=== PATIENT | female | born 1935 | race Caucasian/White ===

== ENCOUNTER → 2016-08-31 | Outpatient (CLI) | payer MEDICARE, OTHER ==
--- NOTE | 2016-09-01 00:24 | MR ---
EXAMINATION TYPE: MR lumbar spine wo con DATE OF EXAM: 08/31/2016 3:48 PM COMPARISON: 12/04/2014 HISTORY: 81-year-old female LBP radiating into left leg for several years, no trauma/surgery. TECHNIQUE: Multiplanar, multisequence images of the lumbar spine were obtained without IV contrast. FINDINGS: Vertebral body heights are preserved. Advanced hypertrophic facet arthropathy throughout with degenerative grade 1 anterolisthesis at L4-L5 . Otherwise, alignment is maintained. There is dextroconvex curvature of the lumbar spine and advanced Modic type III sclerotic endplate ch anges towards the left lateral side of concavity particularly at L3-L4. Variable moderate multilevel degenerative disc disease especially at L3-L4 and L5-S1 where there is n arrowing of disc space, disc desiccation, and diffuse disc bulging. Multiple levels of ligamentum flavum thickening is also present. There is also degenerative thinning of the interspinous ligaments with abutment of the spinous proces ses. There is a posterior annular fissure at L5-S1, unchanged. No suspicious bone marrow replacement. Conus medullaris is normal. Incidental 1.3 cm cortical cyst medial left kidney. Redemonstrated mass within the left adrenal gland measuring 3.2 cm, unchanged from 12/14/2014 suggesting a benign etiology. Otherwise, no prevertebral or paravertebral soft tissue abnormality seen. At L5-S1, minimal bulging disc without significant spinal canal or neuroforaminal stenosis. At L1-L2, mild disc bulge and mild facet degenerative change. There is minimal right-sided neuroforam inal narrowing without significant spinal canal stenosis. At L2-L3, there is diffuse disc bulge and ligamentum flavum thickening with prominent dorsal epidural fat. There is overall mild narrowing of the spinal canal and mild left neuroforaminal stenosis, not significantly changed from prior. At L3-L4, there is diffuse disc bulge and ligamentum flavum thickening as well as hypertrophic facet arthropathy. There is a prominent left intraforaminal disc protrusion, similar to prior exam and solorzano ges appear to contribute to severe left neuroforaminal stenosis, similar to prior. There is also a mo derate spinal canal stenosis and mild right neuroforaminal stenosis. At L4-L5, there is hypertrophic facet arthropathy with grade 1 anterolisthesis, diffuse disc bulging, and marked ligamentum flavum thickening. Changes result in moderate to severe spinal canal stenosis with a moderate bilateral neuroforaminal stenoses. Lateral recess stenosis is likely also present. At L5-S1, disc osteophyte complex formation with hypertrophic facet arthropathy. Changes result in mi ld left and moderate right neuroforaminal stenosis. Disc osteophyte complex may abut the exiting righ t L5 nerve root. IMPRESSION: 1. Multilevel moderate to advanced disc/endplate degenerative change. There is similar prominent scle rotic Modic type III endplate change on the left at L3-L4 along the concavity of a dextroconvex scoli osis. 2. No vertebral compression collapse. 3. Additional multilevel ligamentum flavum thickening and hypertrophic facet arthropathy with grade 1 anterolisthesis at L4-L5. 4. Changes result in similar moderate spinal canal stenosis at L3-L4 and moderate to severe spinal ca nal stenosis at L4-L5. 5. Variable neuroforaminal stenoses as outlined above severe on the left at L3-L4, moderate on both s ides at L4-L5, and moderate on the right at L5-S1. These also appear relatively similar.
== END | disposition home or self-care (01) ==
LOC: RADMRIMAIN 14:41
PROVIDERS: ATTEND Physical Medicine & Rehabilitation
DX: M48.06 Spinal stenosis, lumbar region (principal); M99.73 Connective tissue and disc stenosis of intervertebral foramina of lumbar region; M43.16 Spondylolisthesis, lumbar region; M47.816 Spondylosis without myelopathy or radiculopathy, lumbar region; M41.86 Other forms of scoliosis, lumbar region
CPT/HCPCS: 72148

== ENCOUNTER → 2016-08-31 | Outpatient (CLI) | payer MEDICARE, OTHER ==
[2016-08-31 16:21] LABS: Basophils # (A) 0.1 k/uL (0-0.2); Basophils % (A) 1 %; CH 29.1; CHCM 33.9; Eosinophils # (A) 0.1 k/uL (0-0.7); Eosinophils % (A) 1 %; HDW 2.63; HGB 14.4 gm/dL (11.4-16.0); Luc % (Auto) 1; Lymphocytes # (A) 1.2 k/uL (1.0-4.8); Lymphocytes % (A) 16 %; MCH 28.2 pg (25.0-35.0); MCHC 32.8 g/dL (31.0-37.0); Mean Platelet Volume 6.7; Monocytes # (A) 0.4 k/uL (0-1.0); Monocytes % (A) 5 %; Neutrophils # (A) 5.5 k/uL (1.3-7.7); Neutrophils % (A) 75 %; RBC 5.11 m/uL (3.80-5.40); RDW 13.2 % (11.5-15.5); WBC 7.4 k/uL (3.8-10.6); WBC (Perox) 7.44
[2016-08-31 16:45] LABS: ALT 20 U/L (9-52); AST 24 U/L (14-36); Alkaline Phosphatase 92 U/L (38-126); Anion Gap 10 mmol/L; Blood Urea Nitrogen 19 mg/dL (7-17); C Reactive Protein <5.0 mg/L (<10.0); Calcium 9.5 mg/dL (8.4-10.2); Carbon Dioxide 26 mmol/L (22-30); Chloride 106 mmol/L (98-107); Cholesterol 187 mg/dL (<200); Creatine Kinase 82 U/L (30-135); Glucose 107 mg/dL (74-99); HDL Cholesterol 63 mg/dL (40-60); Non-African American GFR(MDRD) >60 (>60 ml/min/1.73 sqM); Potassium 3.9 mmol/L (3.5-5.1); Sodium 142 mmol/L (137-145); Total Bilirubin 0.8 mg/dL (0.2-1.3); Total Protein 6.4 g/dL (6.3-8.2); Triglycerides 136 mg/dL (<150)
[2016-08-31 17:47] LABS: Erythrocyte Sedimentation Rate 8 mm/hr (0-20)
[2016-08-31 20:46] LABS: Hemoglobin A1C 5.2 % (4.2-6.1)
== END | disposition home or self-care (01) ==
LOC: LABWHC1 16:00
PROVIDERS: ATTEND Internal Medicine
DX: E78.5 Hyperlipidemia, unspecified (principal); E11.9 Type 2 diabetes mellitus without complications; I10 Essential (primary) hypertension; E03.9 Hypothyroidism, unspecified; J44.9 Chronic obstructive pulmonary disease, unspecified; E55.9 Vitamin D deficiency, unspecified; J45.909 Unspecified asthma, uncomplicated
CPT/HCPCS: 36415; 72148; 80053; 80061; 82306; 82550; 83036; 84443; 85025; 85652; 86140

== ENCOUNTER 2018-08-03 07:35 | Emergency (ER) | payer MEDICARE, OTHER ==
[2018-08-03] MEDS ORDERED: HYDROmorphone 1 MG/ML 1 ML SYRINGE IM STA (07:45)
[2018-08-03 07:47] VITALS: BP 159/74; PULSE 81; RESP 16; TEMP 97.6
--- NOTE | 2018-08-03 07:59 | ED ---
Back Pain HPI - General Stated Complaint: back pain Time Seen by Provider: 08/03/18 07:38 Source: patient, EMS, RN notes reviewed Mode of arrival: EMS Limitations: no limitations - History of Present Illness Initial Comments: This is an 83-year-old female presents emergency Department chief complaint of low back pain. Patient states that she accidentally hit her life alert this morning without knowing she states EMS arrived at her house and they were talking to her and she stated that she had low back pain which is chronic. She states they convinced her to come in because I was crying from the pain. She states it always in pain and she does see Dr. Alexandre and Dr. Garcia. Patient states she was her Elizabeth but states it didn't help so she stopped taking it. This pain is not new for her. She denies any bowel bladder incontinence or retention. Denies any saddle anesthesia or lower shunted paresthesia. She does state that she has chronic lower leg edema which has not worsened usual denies any orthopnea. She takes Lasix for her legs. She has not taken her morning dose. She denies chest pain, shortness breath, headache, dizziness, dysuria, hematuria. - Related Data Home Medications Medication Instructions Recorded Confirmed Oxybutynin Chloride [Ditropan] 5 mg PO BID 11/24/15 08/03/18 Pravastatin Sodium [Pravachol] 40 mg PO HS 11/24/15 08/03/18 Aspirin 81 mg PO HS 01/15/16 08/03/18 Cholecalciferol [Vitamin D3] 2,000 unit PO DAILY 01/15/16 08/03/18 Vitamin B Complex 1 cap PO DAILY 01/15/16 08/03/18 ARIPiprazole [Abilify] 5 mg PO HS 07/18/17 08/03/18 Acetaminophen [Tylenol Arthritis] 1,300 mg PO BID PRN 08/03/18 08/03/18 FLUoxetine HCL 40 mg PO DAILY 08/03/18 08/03/18 Furosemide [Lasix] 40 mg PO BID 08/03/18 08/03/18 Previous Rx's Medication Instructions Recorded Lisinopril [Zestril] 10 mg PO BID #60 tab 07/25/17 Allergies Allergy/AdvReac Type Severity Reaction Status Date / Time codeine Allergy Unknown Verified 08/03/18 08:01 morphine AdvReac ARM TURNED Verified 08/03/18 08:01 RED Review of Systems ROS Statement: Those systems with pertinent positive or pertinent negative responses have been documented in the HPI. ROS Other: All systems not noted in ROS Statement are negative. Past Medical History Past Medical History: Cancer, Diabetes Mellitus, Deep Vein Thrombosis (DVT), GERD/Reflux, Hyperlipidemia, Hypertension, Osteoarthritis (OA), Vascular Disorder Additional Past Medical History / Comment(s): HX SKIN CA WITH REMOVAL, HX DVT LT LEG X2, SEVERE VARICOSE VEINS BILATERALLY, NIDDM TYPE II-PT STATES SHE IS NO LONGER ON MEDICATION FOR DIABETES, ARTHRITIS IN BACK, NECK AND SHOULDERS AND HAS SCIATICA, GASTRITIS, DUODENITIS, HIATAL HERNIA, DIVERTICULAR DX, BENIGN POLYPECTOMY, VITAMIN D DEFICIENCY, OCCASIONAL LOWER LEG/PEDAL EDEMA. History of Any Multi-Drug Resistant Organisms: None Reported Past Surgical History: Section, Joint Replacement, Orthopedic Surgery Additional Past Surgical History / Comment(s): Bilateral total knees, egds/ colonoscopies, hemorrhoidectomy, cervical fusion, CTR RT WRIST, skin cancer removed from nose, R shoulder arthroscopic sx, L leg DVT removal, L breast benign bx. Past Anesthesia/Blood Transfusion Reactions: No Reported Reaction Past Psychological History: Anxiety, Depression Smoking Status: Former smoker - Past Family History Father Sister(s) Family Medical History: Cancer Additional Family Medical History / Comment(s): Father of cancer in his "back" at the age of 63 yrs. He also had heart problems. Mother Additional Family Medical History / Comment(s): Mother had to have esophageal dilitations. She in her 80's. Sister(s) Family Medical History: Cancer Additional Family Medical History / Comment(s): Pt's sister had breast and lung cancer. General Exam Limitations: no limitations General appearance: alert, in no apparent distress Head exam: Present: atraumatic, normocephalic, normal inspection Eye exam: Present: normal appearance, PERRL, EOMI. Absent: scleral icterus, conjunctival injection, periorbital swelling ENT exam: Present: normal exam, normal oropharynx, mucous membranes moist, TM's normal bilaterally, normal external ear exam Neck exam: Present: normal inspection, full ROM. Absent: tenderness, meningismus, lymphadenopathy Respiratory exam: Present: normal lung sounds bilaterally. Absent: respiratory distress, wheezes, rales, rhonchi, stridor Cardiovascular Exam: Present: regular rate, normal rhythm, normal heart sounds. Absent: systolic murmur, diastolic murmur, rubs, gallop, clicks GI/Abdominal exam: Present: soft, normal bowel sounds. Absent: distended, tenderness, guarding, rebound, rigid Extremities exam: Present: other (Lower extremity strength equal bilaterally, neurovascular intact there is +1 edema noted) Back exam: Present: normal inspection, full ROM (Mild to moderate discomfort), tenderness (Mild diffuse lumbar lower region), paraspinal tenderness, vertebral tenderness. Absent: CVA tenderness (R), CVA tenderness (L) Neurological exam: Present: alert, oriented X3, CN II-XII intact, reflexes normal. Absent: motor sensory deficit Skin exam: Present: warm, dry, intact, normal color. Absent: rash Course Vital Signs 08/03/18 07:39 Temperature 97.6 F Pulse Rate 81 Respiratory 16 Rate Blood Pressure 159/74 O2 Sat by Pulse 97 Oximetry Medical Decision Making - Medical Decision Making 83-year-old female presented for low back pain. Patient is chronic back pain does see Dr. Alexandre for pain management. Patient has no new symptoms. Patient was not going to present emergency department though she actually had her life alert and EMS brought her. Patient is stable has no red flag symptoms. Pain control given and she will follow-up at her doctor's appointment today. Disposition Clinical Impression: Chronic low back pain Disposition: HOME SELF-CARE Condition: Stable Instructions: Chronic Back Pain (ED) Additional Instructions: Please return to the Emergency Department if symptoms worsen or any other concerns. Is patient prescribed a controlled substance at d/c from ED?: No Referrals: Matthieu Garcia MD [Primary Care Provider] - 1-2 days Time of Disposition: 08:52
--- NOTE | 2018-08-03 08:45 | XR ---
EXAMINATION TYPE: XR lumbosacral spine min 4V DATE OF EXAM: 08/03/2018 COMPARISON: NONE HISTORY: 83-year-old female chronic bilateral SI joint pain, worse today radiating down the legs TECHNIQUE: 5 views FINDINGS: Degenerated dextroconvex scoliosis. Moderate multilevel degenerative disc disease and endplate spondy losis, more severe at L3-L4 and L5-S1, moderate at L4-L5. This characterized by disc height loss, vac uum phenomenon, endplate sclerosis and spondylosis. Hypertrophic facet arthropathy throughout with gr chio 1 anterolisthesis at L4-L5. 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 Vertebral body heights are maintained. A therosclerotic calcifications within the abdominal aorta. IMPRESSION: 1. Degenerated dextroconvex scoliosis. 2. Moderate multilevel disc session plate degenerative change, severe at L3-L4 and L5-S1. 3. Marked hypertrophic facet arthropathy with grade 1 anterolisthesis at L4-L5. 4. Baastrup's disease.
[2018-08-03] MEDS ORDERED: HYDROcodone/APAP 7.5-325MG 1 EACH TAB PO ONE (08:50)
== END 2018-08-03 08:57 | disposition home or self-care (01) ==
LOC: EC 07:35
DX: M54.5 Low back pain (principal); G89.29 Other chronic pain; E11.9 Type 2 diabetes mellitus without complications; K21.9 Gastro-esophageal reflux disease without esophagitis; E78.5 Hyperlipidemia, unspecified; I10 Essential (primary) hypertension; M19.90 Unspecified osteoarthritis, unspecified site; Z85.828 Personal history of other malignant neoplasm of skin; F32.9 Major depressive disorder, single episode, unspecified; F41.9 Anxiety disorder, unspecified; Z87.891 Personal history of nicotine dependence; Z79.82 Long term (current) use of aspirin; Z79.899 Other long term (current) drug therapy; Z88.5 Allergy status to narcotic agent
CPT/HCPCS: 72110; 99284; 96372; J1170

== ENCOUNTER 2019-08-31 08:24 | Emergency (ER) | payer MEDICARE, OTHER ==
[2019-08-31] MEDS ORDERED: SODIUM CHLORIDE 0.9% 1,000 ML IV STA ×2 (08:34)
[2019-08-31] MEDS ORDERED: IPRATROPIUM-ALBUTEROL 3 ML NEB INHALATION STA (08:34)
[2019-08-31] MEDS ORDERED: methylPREDNISolone SOD SUCCI 125 MG/2 ML VIAL IV STA (08:34)
--- NOTE | 2019-08-31 08:40 | ED ---
SOB HPI - General Stated Complaint: BRADEN Time Seen by Provider: 08/31/19 08:26 Source: RN notes reviewed, old records reviewed - History of Present Illness Initial Comments: Patient is an 84-year-old female presents emergency room today with difficulty breathing. Patient has reported that she's been having some chest discomfort a nd pain in the left side of the chest. Patient has had Her blood clots in the past. Patient was called EMS today for the chest pain difficulty breathing. She was giving herself a breathing treatment at home. Her oxygen saturations were 87% on room air. After breathing treatment she's been in the low 90s. Patient reports unable to thinners. Denies any other symptoms. - Related Data Home Medications Medication Instructions Recorded Confirmed RX: Pravastatin Sodium [Pravachol] 40 mg PO HS 11/24/15 08/31/19 RX: Aspirin 81 mg PO DAILY 01/15/16 08/31/19 RX: Cholecalciferol [Vitamin D3 1,000 unit PO DAILY 01/15/16 08/31/19 (25 Mcg = 1000 Iu)] RX: Vitamin B Complex 1 cap PO DAILY 01/15/16 08/31/19 Furosemide [Lasix] 40 mg PO BID@0900,1500 08/03/18 08/31/19 RX: FLUoxetine HCL 40 mg PO DAILY 08/03/18 08/31/19 ARIPiprazole [Abilify] 10 mg PO HS 08/31/19 08/31/19 Gabapentin [Neurontin] 300 mg PO TID 08/31/19 08/31/19 Polyethylene Glycol 3350 [Miralax] 17 gm PO DAILY 08/31/19 08/31/19 Sennosides/Docusate Sodium [Senna 1 tab PO BID 08/31/19 08/31/19 Plus 8.6-50 mg Tablet] oxyCODONE HCL/ACETAMINOPHEN 1 tab PO TID PRN 08/31/19 08/31/19 [Percocet 5-325 mg] Allergies Allergy/AdvReac Type Severity Reaction Status Date / Time codeine Allergy Unknown Verified 08/31/19 09:41 nickel Allergy Unknown Verified 08/31/19 09:41 morphine AdvReac ARM TURNED Verified 08/31/19 09:41 RED DUCK Allergy Unknown Uncoded 08/31/19 09:41 Review of Systems ROS Statement: Those systems with pertinent positive or pertinent negative responses have been documented in the HPI. ROS Other: All systems not noted in ROS Statement are negative. Past Medical History Past Medical History: Cancer, Diabetes Mellitus, Deep Vein Thrombosis (DVT), GERD/Reflux, Hyperlipidemia, Hypertension, Osteoarthritis (OA), Vascular Disorder Additional Past Medical History / Comment(s): HX SKIN CA WITH REMOVAL, HX DVT LT LEG X2, SEVERE VARICOSE VEINS BILATERALLY, NIDDM TYPE II-PT STATES SHE IS NO LONGER ON MEDICATION FOR DIABETES, ARTHRITIS IN BACK, NECK AND SHOULDERS AND HAS SCIATICA, GASTRITIS, DUODENITIS, HIATAL HERNIA, DIVERTICULAR DX, BENIGN POLYPECTOMY, VITAMIN D DEFICIENCY, OCCASIONAL LOWER LEG/PEDAL EDEMA. History of Any Multi-Drug Resistant Organisms: None Reported Past Surgical History: Section, Joint Replacement, Orthopedic Surgery Additional Past Surgical History / Comment(s): Bilateral total knees, egds/colonoscopies, hemorrhoidectomy, cervical fusion, CTR RT WRIST, skin cancer removed from nose, R shoulder arthroscopic sx, L leg DVT removal, L breast benign bx. Past Anesthesia/Blood Transfusion Reactions: No Reported Reaction Past Psychological History: Anxiety, Depression Smoking Status: Former smoker - Past Family History Father Sister(s) Family Medical History: Cancer Additional Family Medical History / Comment(s): Father of cancer in his "back" at the age of 63 yrs. He also had heart problems. Mother Additional Family Medical History / Comment(s): Mother had to have esophageal dilitations. She in her 80's. Sister(s) Family Medical History: Cancer Additional Family Medical History / Comment(s): Pt's sister had breast and lung cancer. General Exam - General Exam Comments Initial Comments: 84-year-old female. Patient appears in mild rest for distress. Oxygen saturation is low 90s on 2 L of oxygen. General appearance: alert, in no apparent distress Head exam: Present: atraumatic, normocephalic, normal inspection Eye exam: Present: normal appearance, PERRL, EOMI. Absent: scleral icterus, conjunctival injection, periorbital swelling ENT exam: Present: normal exam, mucous membranes moist Neck exam: Present: normal inspection. Absent: tenderness, meningismus, lymphadenopathy Respiratory exam: Present: normal lung sounds bilaterally. Absent: respiratory distress, wheezes, rales, rhonchi, stridor Cardiovascular Exam: Present: regular rate, normal rhythm, normal heart sounds. Absent: systolic murmur, diastolic murmur, rubs, gallop, clicks GI/Abdominal exam: Present: soft, normal bowel sounds. Absent: distended, tenderness, guarding, rebound, rigid Extremities exam: Present: normal inspection, full ROM, normal capillary refill. Absent: tenderness, pedal edema, joint swelling, calf tenderness Back exam: Present: normal inspection Neurological exam: Present: alert, oriented X3, CN II-XII intact Psychiatric exam: Present: normal affect, normal mood Skin exam: Present: warm, dry, intact, normal color. Absent: rash Course Vital Signs 08/31/19 08/31/19 08/31/19 08:59 09:07 09:18 Temperature 98.3 F Pulse Rate 102 H 100 102 H Respiratory 18 Rate Blood Pressure 132/109 O2 Sat by Pulse 93 L Oximetry 08/31/19 08/31/19 08/31/19 09:30 10:00 10:30 Temperature Pulse Rate 100 101 H Respiratory 14 18 Rate Blood Pressure 125/61 132/95 121/68 O2 Sat by Pulse 80 L Oximetry 08/31/19 11:00 Temperature Pulse Rate 101 H Respiratory 21 Rate Blood Pressure 157/83 O2 Sat by Pulse 90 L Oximetry Medical Decision Making - Medical Decision Making Patient is an 84 old female presents with onset of difficulty breathing some back pain and chest discomfort onset this morning. On arrival she had low oxygen saturation. Does have peripheral edema does report compression stockings. She states history of blood clots in the past but does not maintain a blood thinners. Clinical concern was for PE. Patient had full workup completed. Positive d-dimer. She also has an elevated troponin of 1.2. EKG showed no ST elevation. BNP pending. Patient CT angios shows evidence of multiple pulmonary embolisms, large embolism measuring 3.3 cm in the pulmonary artery. Patient also has a new days ago esophageal mass measuring 6 cm by 4 cm. Patient was initiated on high intensity heparin. I discussed the case with Dr. Tiwari recommend transfer to [facility]. Patient will be transferred to [facility] at this time in stable condition. Vital signs stable blood pressure 130/70. low 02 sat 90 on 2L oxygen. - Lab Data Result diagrams: 08/31/19 09:00 08/31/19 09:00 Lab Results 08/31/19 08/31/19 08/31/19 Range/Units 09:00 09:00 09:00 WBC 13.9 H (3.8-10.6) k/uL RBC 5.14 (3.80-5.40) m/uL Hgb 14.0 (11.4-16.0) gm/dL Hct 43.2 (34.0-46.0) % MCV 84.0 (80.0-100.0) fL MCH 27.1 (25.0-35.0) pg MCHC 32.3 (31.0-37.0) g/dL RDW 14.6 (11.5-15.5) % Plt Count 234 (150-450) k/uL Neutrophils % 79 % Lymphocytes % 12 % Monocytes % 6 % Eosinophils % 1 % Basophils % 0 % Neutrophils # 11.0 H (1.3-7.7) k/uL Lymphocytes # 1.7 (1.0-4.8) k/uL Monocytes # 0.8 (0-1.0) k/uL Eosinophils # 0.1 (0-0.7) k/uL Basophils # 0.1 (0-0.2) k/uL PT 10.1 (9.0-12.0) sec INR 0.9 (<1.2) APTT 23.4 (22.0-30.0) sec D-Dimer 7.02 H (<0.60) mg/L FEU Sodium 138 (137-145) mmol/L Potassium 3.2 L (3.5-5.1) mmol/L Chloride 100 (98-107) mmol/L Carbon Dioxide 30 (22-30) mmol/L Anion Gap 8 mmol/L BUN 15 (7-17) mg/dL Creatinine 0.77 (0.52-1.04) mg/dL Est GFR (CKD-EPI)AfAm 82 (>60 ml/min/1.73 sqM) Est GFR (CKD-EPI)NonAf 71 (>60 ml/min/1.73 sqM) Glucose 142 H (74-99) mg/dL Calcium 9.5 (8.4-10.2) mg/dL Magnesium 2.0 (1.6-2.3) mg/dL Total Bilirubin 1.3 (0.2-1.3) mg/dL AST 30 (14-36) U/L ALT 17 (4-34) U/L Alkaline Phosphatase 101 (38-126) U/L Troponin I (0.000-0.034) ng/mL NT-Pro-B Natriuret Pep pg/mL Total Protein 6.4 (6.3-8.2) g/dL Albumin 3.9 (3.5-5.0) g/dL 08/31/19 08/31/19 Range/Units 09:00 09:00 WBC (3.8-10.6) k/uL RBC (3.80-5.40) m/uL Hgb (11.4-16.0) gm/dL Hct (34.0-46.0) % MCV (80.0-100.0) fL MCH (25.0-35.0) pg MCHC (31.0-37.0) g/dL RDW (11.5-15.5) % Plt Count (150-450) k/uL Neutrophils % % Lymphocytes % % Monocytes % % Eosinophils % % Basophils % % Neutrophils # (1.3-7.7) k/uL Lymphocytes # (1.0-4.8) k/uL Monocytes # (0-1.0) k/uL Eosinophils # (0-0.7) k/uL Basophils # (0-0.2) k/uL PT (9.0-12.0) sec INR (<1.2) APTT (22.0-30.0) sec D-Dimer (<0.60) mg/L FEU Sodium (137-145) mmol/L Potassium (3.5-5.1) mmol/L Chloride (98-107) mmol/L Carbon Dioxide (22-30) mmol/L Anion Gap mmol/L BUN (7-17) mg/dL Creatinine (0.52-1.04) mg/dL Est GFR (CKD-EPI)AfAm (>60 ml/min/1.73 sqM) Est GFR (CKD-EPI)NonAf (>60 ml/min/1.73 sqM) Glucose (74-99) mg/dL Calcium (8.4-10.2) mg/dL Magnesium (1.6-2.3) mg/dL Total Bilirubin (0.2-1.3) mg/dL AST (14-36) U/L ALT (4-34) U/L Alkaline Phosphatase (38-126) U/L Troponin I 1.240 H* (0.000-0.034) ng/mL NT-Pro-B Natriuret Pep 542 pg/mL Total Protein (6.3-8.2) g/dL Albumin (3.5-5.0) g/dL 08/31/19 08:58 EKG shows sinus tachycardia, inferior infarct age undetermined. Possible anterolateral infarct age and determine. Abnormal EKG. Ventricular rate of 102 ms. QRS duration is 170 ms. QT QTc is 96 most seconds. QT QTc is 400/421 ms. - Radiology Data Radiology results: report reviewed CT chest and shows shows right lobe of the thyroid is heterogeneous measuring 4.6 x 4.97 m. Additional workup. Recommended. Displacing the trachea to the right. Large pulmonary emboli in the right main pulmonary artery with lingular steven on the left left lower lobe pulmonary emboli are evident. No medial sign or hilar adenopathy enlarged CT criteria evident. His any aortic diameter at the level of the main pulmonary arteries 3.37 m. Left main pulmonary artery diameter of the direct bifurcation is 3.6 and meters. Right heart strain is not identified. There is as ago esophageal recess mass measuring 6.1 x 4.2 cm x 6.37 m. Workup for neoplasm is recommended. Limited CT sections obtained through upper abdomen shows a left adrenal gland for lobular thickening at 2.1 cm suspicious for metastatic lesion. The overall impression is bilateral pulmonary emboli. Large mass in that is ago esophageal recess. 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 Disposition Clinical Impression: Esophageal mass, Pulmonary embolism, Elevated troponin Disposition: DC/TRNS INTERMEDIATE CARE FAC Condition: Critical Is patient prescribed a controlled substance at d/c from ED?: No Referrals: None,Stated [Primary Care Provider] - 1-2 days Time of Disposition: 11:20 - Out of Hospital Transfer - Req. Specs Out of Hospital Transfer - Requested Specifics: Other Emergency Center
[2019-08-31 09:01] VITALS: TEMP 98.3
[2019-08-31 09:27] LABS: Basophils # (A) 0.1 k/uL (0-0.2); Basophils % (A) 0 %; Eosinophils # (A) 0.1 k/uL (0-0.7); Eosinophils % (A) 1 %; HCT 43.2 % (34.0-46.0); Lymphocytes # (A) 1.7 k/uL (1.0-4.8); Lymphocytes % (A) 12 %; MCH 27.1 pg (25.0-35.0); MCHC 32.3 g/dL (31.0-37.0); Mean Platelet Volume 7.4; Monocytes # (A) 0.8 k/uL (0-1.0); Monocytes % (A) 6 %; Neutrophils % (A) 79 %; Platelet Count 234 k/uL (150-450); RBC 5.14 m/uL (3.80-5.40); RDW 14.6 % (11.5-15.5); WBC 13.9 k/uL (3.8-10.6)
[2019-08-31 09:39] LABS: Albumin 3.9 g/dL (3.5-5.0); Calcium 9.5 mg/dL (8.4-10.2); Potassium 3.2 mmol/L (3.5-5.1); Total Bilirubin 1.3 mg/dL (0.2-1.3); Total Protein 6.4 g/dL (6.3-8.2)
--- NOTE | 2019-08-31 09:52 | XR ---
EXAMINATION TYPE: XR chest 2V DATE OF EXAM: 08/31/2019 COMPARISON: 07/21/2017 HISTORY: 84-year-old female with shortness of breath, difficulty breathing TECHNIQUE: AP and lateral views FINDINGS: Heart upper limits of normal in size. Similar bilateral hilar prominence. Mild diffuse interstitial p rominence. Some focal opacity at the posterior mid lung noted on the lateral view. Some additional pa tchy density posterior base on the lateral view. No sizable effusion. IMPRESSION: 1. Similar bilateral hilar prominence, possible underlying pulmonary hypertension. 2. Focal opacity posterior midlung and posterior base on the lateral view. Areas of infiltrate diffic ult to exclude. Short interval follow-up recommended to ensure clearance.
[2019-08-31 09:56] LABS: INR 0.9 (<1.2); Partial Thromboplastin Time 23.4 sec (22.0-30.0); Prothrombin Time 10.1 sec (9.0-12.0)
[2019-08-31 10:02] LABS: D-Dimer 7.02 mg/L FEU (<0.60)
[2019-08-31] MEDS ORDERED: HEPARIN SODIUM,PORCINE 5,000 UNIT/ML 1 ML VIAL IV PRN (10:24)
[2019-08-31] MEDS ORDERED: HEPARIN SODIUM,PORCINE 10,000 UNIT/ML 1 ML VIAL IV ONE (10:24)
[2019-08-31] MEDS ORDERED: HEPARIN SOD,PORK IN 0.45% NACL 25,000 UNIT in 0.45% NACL 1 250ML.BAG IV SCH (10:30)
--- NOTE | 2019-08-31 11:07 | CT ---
CT CHEST FOR PULMONARY EMBOLISM. EXAMINATION TYPE: CT chest angio for PE DATE OF EXAM: 08/31/2019 INDICATION: BRADEN CT DLP: 341 mGycm, Automated exposure control for dose reduction was used. CONTRAST: Patient injected with 100 ml mL of Isovue 370. COMPARISON: None TECHNIQUE: CT of the chest is performed on a spiral scan at 2 mm thick sections. Study is performed with intravenous contrast timed for evaluation for pulmonary embolism. This will limit additional po rtions of the evaluation. 3-D MIP images reconstructed by the technologist are reviewed on the compu ter in the coronal and sagittal planes. FINDINGS: Right lobe thyroid is heterogenous and enlarged measuring 4.6 x 4.9 cm. Additional workup w ith ultrasound is recommended. This is displacing the trachea to the right. Large pulmonary emboli are within the right main pulmonary artery and within the lingular branch on t he left. Left lower lobe pulmonary emboli are evident. Report was called to the emergency room PA by Dr. Vinson by telephone [id number] hours 08/31/2019 No mediastinal or hilar adenopathy enlarged by CT criteria is evident. The ascending aorta diameter at the level of the main pulmonary artery is 3.3 cm. The main pulmonary artery diameter at the bifur cation is 3.6 cm. Correlate for pulmonary hypertension. Right heart strain is not identified. There is a azygoesophageal recess mass measuring 6.1 x 4.2 x 6.3 cm. Workup for neoplasm is recommend ed. Some minimal pneumonitis changes within the periphery of the right middle lobe. Series 401 image 63 a dditional pneumonitis changes in the right upper lung field anteriorly, series [address] sections are obtained through the upper abdomen. Left adrenal gland appears lobular with a thickening of 2.9 cm suspicious for metastatic lesion. IMPRESSIONS: 1. Bilateral pulmonary emboli. 2. Large mass in the azygoesophageal recess. 3. 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
[2019-08-31 11:35] VITALS: BP 121/65; PULSE 103; RESP 19
== END 2019-08-31 11:45 ==
LOC: EC 08:24
DX: I26.99 Other pulmonary embolism without acute cor pulmonale (principal); K22.8 Other specified diseases of esophagus; R79.89 Other specified abnormal findings of blood chemistry; E78.5 Hyperlipidemia, unspecified; I10 Essential (primary) hypertension; M19.011 Primary osteoarthritis, right shoulder; M19.012 Primary osteoarthritis, left shoulder; M47.22 Other spondylosis with radiculopathy, cervical region; M47.20 Other spondylosis with radiculopathy, site unspecified; E55.9 Vitamin D deficiency, unspecified; F32.9 Major depressive disorder, single episode, unspecified; F41.9 Anxiety disorder, unspecified; Z87.891 Personal history of nicotine dependence; Z88.5 Allergy status to narcotic agent; Z91.048 Other nonmedicinal substance allergy status; Z79.82 Long term (current) use of aspirin; Z79.899 Other long term (current) drug therapy; Z85.828 Personal history of other malignant neoplasm of skin; Z86.010 Personal history of colon polyps; Z86.718 Personal history of other venous thrombosis and embolism; Z96.653 Presence of artificial knee joint, bilateral; Z98.1 Arthrodesis status; Z98.890 Other specified postprocedural states; Z80.1 Family history of malignant neoplasm of trachea, bronchus and lung
CPT/HCPCS: 36415; 94640; 93005; 85379; 83880; 80053; 83735; 84484; 85025; 85610; 85730; 71046; 71275; 99285; 96365; 96375; 96376; 96361 ×2; J1644 ×2; J2930; Q9967

== ENCOUNTER → 2019-09-29 | Outpatient (CLI) | payer MEDICARE, OTHER ==
--- NOTE | 2019-10-02 06:25 | PE ---
EXAMINATION TYPE: PET CT fusion skull to thigh DATE OF EXAM: 09/29/2019 COMPARISON: CTA chest August 31, 2019. CT abdomen and pelvis July 18, 2017. HISTORY: Lung cancer initial staging study per order. TECHNIQUE: Following the intravenous administration of 9.16 mCi of F-18 FDG, whole body images are p erformed from the skull base to the midthigh. Images are reviewed on the computer in the coronal, ax ial, and sagittal planes. Reconstructed rotating images are created on independent workstation and r eviewed on the computer. A noncontrast CT is performed in conjunction with the PET scan. SCAN: Initial Scan FINDINGS: SKULL BASE AND NECK: No areas of suspicious hypermetabolic uptake. Redemonstration of asymmetric rig ht thyroid enlargement possibly from large right thyroid nodule, it is noted ametabolic. CHEST, MEDIASTINUM, AND HILAR REGION: There is background [id number] underlying emphysematous c hange redemonstrated most prominent in the upper lungs. Corresponding to most recent CT there is azyg oesophageal recess mass just posterior to the right infrahilar level abutting posterior marginal bron chus intermedius, there is extension to the pleural surface posteriorly and medially. Mass lesion kimberly sures 5.5 x 4.8 cm axial image 87, max SUV is 6.56. Craniocaudal length of lesion is estimated 5 to 6 cm. There is incidental calcified 5 mm superior right lower lobe nodule or granuloma axial image 82. Ther e are calcified subcentimeter right hilar and infrahilar lymph nodes axial image 85 and 94. No additi onal areas of suspicious hypermetabolic nodules or masses in either lung. No definitive abnormal hype rmetabolic enlarged hilar or mediastinal adenopathy. ABDOMEN AND PELVIS: There is redemonstration of left adrenal mass measuring 4.1 x 2.8 cm that is amet abolic, in retros back to this without stable in size from July 18, 2017 CT abdomen study axial i mage 14 and was also identified on November 24, 2015 CT, this is most likely due to adjacent benign lipi d rich adenomas given lack of hypermetabolic uptake and stability from 2016. There is single area of suspicious abnormal hypermetabolic uptake confined within bowel axial image 2 00 corresponding to 3.1 x 2.5 cm soft tissue lesion at this level base of cecum, max SUV is 13.03. Th e area is strongly suspicious for primary colonic carcinoma. OSSEOUS STRUCTURES: No areas of suspicious hypermetabolic uptake. OTHER CT: Coronary artery calcification is present which is noted marked of underlying coronary arter y disease, also suspect stent in the RCA distribution. There is trace pericardial effusion. Heart siz e upper limits of normal. Cholecystectomy clips are seen. Nondigested pill small bowel loop right lower quadrant image 178 is f elt present. Occasional pelvic phleboliths. Underlying scoliosis in the lumbar spine. Multilevel vacuum disc phenomenon and disc space narrowing in the mid to lower lumbar spine with facet arthropathy. Moderate calcified plaque of the mid to dist al abdominal aorta extends into iliac branch vessels. IMPRESSION: 1. Suspicious hypermetabolic uptake in the right azygoesophageal recess mass consistent with neoplasm as detailed above. No additional lung lesions or suspicious thoracic adenopathy identified. Left adr enal mass or 2 adjacent masses are ametabolic and stable in size from 2016 consistent with benign tyrese ology. 2. Suspicious hypermetabolic soft tissue lesion base of cecum worrisome for primary cecal carcinoma. Colonoscopy follow-up with sampling is strongly advised. 3. Large right thyroid nodule with local mass effect. Further investigation with ultrasound and proba ble sampling advised if this has not been sampled in the past or can be documented as a chronic findi ng.
== END | disposition home or self-care (01) ==
LOC: RADPETMAIN 11:53
PROVIDERS: ATTEND Internal Medicine Hematology & Oncology
DX: C34.31 Malignant neoplasm of lower lobe, right bronchus or lung (principal); E04.1 Nontoxic single thyroid nodule; E27.9 Disorder of adrenal gland, unspecified
CPT/HCPCS: 78815; A9552

== ENCOUNTER 2019-10-11 01:25 | Emergency (ER) | payer MEDICARE, OTHER ==
[2019-10-11 01:30] VITALS: BP 149/85; PULSE 83; RESP 18; TEMP 97.8
--- NOTE | 2019-10-11 02:32 | ED ---
Abdominal Pain HPI - General Chief Complaint: Abdominal Pain Stated Complaint: Abd Pain Time Seen by Provider: 10/11/19 01:37 Source: patient Mode of arrival: EMS - History of Present Illness Initial Comments: Patient is an 84-year-old female, currently being treated for lung cancer with metastases, presenting to the emergency department via EMS with complaints of low right sided abdominal pain that started approximately 2 hours prior to arrival. Patient states she woke up to use the restroom when she noticed some cramping sensation in her right groin area, lower right abdomen. Patient describes it as crampy in nature but constant. Patient states she was worried that she may have another clot so she decided to call EMS. Patient denies any fever, shortness of breath, chest pain, nausea, vomiting, diarrhea. She denies any lower extremity pain. Patient states that since she arrived at the hospital her pain has gone away. She is currently pain-free. Patient was recently treated approximately one month ago for bilateral PEs and is now currently on a blood thinner. She denies any urinary complaints. She has no other complaints at this time. Upon arrival to the ER her vital signs are stable. - Related Data Home Medications Medication Instructions Recorded Confirmed Pravastatin Sodium [Pravachol] 40 mg PO HS 11/24/15 08/31/19 Aspirin 81 mg PO DAILY 01/15/16 08/31/19 Cholecalciferol [Vitamin D3 (25 1,000 unit PO DAILY 01/15/16 08/31/19 Mcg = 1000 Iu)] Vitamin B Complex 1 cap PO DAILY 01/15/16 08/31/19 FLUoxetine HCL 40 mg PO DAILY 08/03/18 08/31/19 Furosemide [Lasix] 40 mg PO BID@0900,1500 08/03/18 08/31/19 ARIPiprazole [Abilify] 10 mg PO HS 08/31/19 08/31/19 Gabapentin [Neurontin] 300 mg PO TID 08/31/19 08/31/19 Polyethylene Glycol 3350 [Miralax] 17 gm PO DAILY 08/31/19 08/31/19 Sennosides/Docusate Sodium [Senna 1 tab PO BID 08/31/19 08/31/19 Plus 8.6-50 mg Tablet] oxyCODONE HCL/ACETAMINOPHEN 1 tab PO TID PRN 08/31/19 08/31/19 [Percocet 5-325 mg] Allergies Allergy/AdvReac Type Severity Reaction Status Date / Time codeine Allergy Unknown Verified 10/11/19 01:31 nickel Allergy Unknown Verified 10/11/19 01:31 morphine AdvReac ARM TURNED Verified 10/11/19 01:31 RED DUCK Allergy Unknown Uncoded 08/31/19 09:41 Review of Systems ROS Statement: Those systems with pertinent positive or pertinent negative responses have been documented in the HPI. ROS Other: All systems not noted in ROS Statement are negative. Past Medical History Past Medical History: Cancer, Diabetes Mellitus, Deep Vein Thrombosis (DVT), GERD/Reflux, Hyperlipidemia, Hypertension, Osteoarthritis (OA), Vascular Disorder Additional Past Medical History / Comment(s): HX SKIN CA WITH REMOVAL, HX DVT LT LEG X2, SEVERE VARICOSE VEINS BILATERALLY, NIDDM TYPE II-PT STATES SHE IS NO LONGER ON MEDICATION FOR DIABETES, ARTHRITIS IN BACK, NECK AND SHOULDERS AND HAS SCIATICA, GASTRITIS, DUODENITIS, HIATAL HERNIA, DIVERTICULAR DX, BENIGN POLYPECTOMY, VITAMIN D DEFICIENCY, OCCASIONAL LOWER LEG/PEDAL EDEMA. History of Any Multi-Drug Resistant Organisms: None Reported Past Surgical History: Section, Joint Replacement, Orthopedic Surgery Additional Past Surgical History / Comment(s): Bilateral total knees, egds/colonoscopies, hemorrhoidectomy, cervical fusion, CTR RT WRIST, skin cancer removed from nose, R shoulder arthroscopic sx, L leg DVT removal, L breast benign bx. Past Anesthesia/Blood Transfusion Reactions: No Reported Reaction Past Psychological History: Anxiety, Depression Smoking Status: Former smoker - Past Family History Father Sister(s) Family Medical History: Cancer Additional Family Medical History / Comment(s): Father of cancer in his "back" at the age of 63 yrs. He also had heart problems. Mother Additional Family Medical History / Comment(s): Mother had to have esophageal dilitations. She in her 80's. Sister(s) Family Medical History: Cancer Additional Family Medical History / Comment(s): Pt's sister had breast and lung cancer. General Exam - General Exam Comments Initial Comments: GENERAL: Well-appearing, well-nourished and in no acute distress. HEAD: Atraumatic, normocephalic. EYES: Pupils equal round and reactive to light, extraocular movements intact, sclera anicteric, conjunctiva are normal. ENT: TMs normal, nares patent, oropharynx clear without exudates. Moist mucous membranes. NECK: Normal range of motion, supple without lymphadenopathy or JVD. LUNGS: Breath sounds clear to auscultation bilaterally and equal. No wheezes rales or rhonchi. HEART: Regular rate and rhythm without murmurs, rubs or gallops. ABDOMEN: Soft, nontender, normoactive bowel sounds. No guarding, no rebound. No masses appreciated. : Deferred EXTREMITIES: Normal range of motion, no pitting or edema. No clubbing or cyanosis. NEUROLOGICAL: Normal speech, normal gait. PSYCH: Normal mood, normal affect. SKIN: Warm, Dry, normal turgor, no rashes or lesions noted. Course Vital Signs 10/11/19 01:26 Temperature 97.8 F Pulse Rate 83 Respiratory 18 Rate Blood Pressure 149/85 O2 Sat by Pulse 96 Oximetry Medical Decision Making - Medical Decision Making Patient is an 84-year-old female, currently being treated for lung cancer with metastases, presenting with right lower quadrant, right groin pain started 2 hours ago. When she arrived to the ER, her symptoms are gone. Her exam is unremarkable, she has no belly pain, no cording pain. Her lower extremities are pain-free, pulses are equal bilateral. Vital signs are stable. No chest pain, shortness of breath. I recommended patient getting lab work as well as urinalysis. Patient states that since she is symptomatic free, she wishes to go home. She declined any lab work or urine sample. I discussed the pros and cons of no lab work, patient still wishes to go home. Patient will be discharged at this time. Her vital signs remained stable, she remains asymptomatic. Her parameters were discussed with the patient she verbalized understanding. Disposition Clinical Impression: Abdominal cramping in right lower quadrant Disposition: HOME SELF-CARE Condition: Stable Instructions (If sedation given, give patient instructions): Abdominal Pain (ED) Additional Instructions: Please return to the Emergency Department if symptoms worsen or any other concerns. Follow-up with primary care physician. Is patient prescribed a controlled substance at d/c from ED?: No Referrals: Matthieu Garcia MD [Primary Care Provider] - 1-2 days
== END 2019-10-11 03:41 | disposition home or self-care (01) ==
LOC: EC 01:25
DX: R10.31 Right lower quadrant pain (principal); C34.90 Malignant neoplasm of unspecified part of unspecified bronchus or lung; C79.9 Secondary malignant neoplasm of unspecified site; E78.5 Hyperlipidemia, unspecified; I10 Essential (primary) hypertension; M19.011 Primary osteoarthritis, right shoulder; M19.012 Primary osteoarthritis, left shoulder; M47.22 Other spondylosis with radiculopathy, cervical region; F32.9 Major depressive disorder, single episode, unspecified; F41.9 Anxiety disorder, unspecified; Z87.891 Personal history of nicotine dependence; Z88.5 Allergy status to narcotic agent; Z91.048 Other nonmedicinal substance allergy status; Z79.82 Long term (current) use of aspirin; Z79.899 Other long term (current) drug therapy; Z85.828 Personal history of other malignant neoplasm of skin; Z87.19 Personal history of other diseases of the digestive system; Z86.010 Personal history of colon polyps; Z98.890 Other specified postprocedural states; Z96.653 Presence of artificial knee joint, bilateral; Z98.1 Arthrodesis status; Z80.1 Family history of malignant neoplasm of trachea, bronchus and lung
CPT/HCPCS: 99284

== ENCOUNTER → 2019-10-11 | Outpatient (CLI) | payer MEDICARE, OTHER ==
--- NOTE | 2019-10-11 10:01 | MR ---
EXAMINATION TYPE: MR brain wo/w con DATE OF EXAM: 10/11/2019 COMPARISON: None HISTORY: Lung cancer / Headaches TECHNIQUE: Multiplanar, multisequence images of the brain and brainstem is performed without and with IV contras t, utilizing 9 mL intravenous Gadavist . FINDINGS: Diffusion weighted images demonstrate no evidence of a recent infarct or other diffusion ab normality. There is a 6 mm extra-axial area of enhancement along the right parietal calvarium on image 57. Along the anterior interhemispheric fissure there is a 7 mm area of nodular enhancement. Additionally renzo g the sagittal sinus there is a 2.4 x 1 cm area of abnormal signal and enhancement. Difficult to dete rmine if this is an extra-axial lesion compressing the venous sinus or extension into the venous sinu s. All of these lesions are suspicious for metastases. No midline shift. Mild to moderate generalized degenerative changes seen and there is a numerous area s of abnormal signal throughout the white matter in a nonspecific pattern but most typical of remote microvascular ischemia. Midline structures demonstrate normal morphology. The craniocervical junction appears within normal limits. Post contrast images demonstrate no abnormal enhancement. The dural venous sinuses appear pa tent. Changes of chronic sinusitis are noted. Intraorbital structures are symmetric. Report called to the referring clinician. Abnormal signal in the midbrain most typical remote ischemic change. No enhancement. IMPRESSION: 1. There is a 2.4 x 1 cm area of abnormal enhancement along the superior sagittal sinus. Findings com patible with extra-axial metastases. Extension of the tumor into the superior sagittal sinus and sinu s tumor thrombosis in the differential diagnosis. Suspect is most extrinsically compressing the sinus , although extension into the venous sinus not excluded. MRV recommended. 2. There are 2 additional subcentimeter areas of extra-axial nodular enhancement compatible with meta stases. 3. Degenerative and extensive nonspecific white matter changes most typical remote microvascular isch emia.
== END | disposition home or self-care (01) ==
LOC: RADMRIMAIN 08:07
PROVIDERS: ATTEND Internal Medicine Hematology & Oncology
DX: R90.89 Other abnormal findings on diagnostic imaging of central nervous system (principal); I67.82 Cerebral ischemia
CPT/HCPCS: 70553; A9585

== ENCOUNTER → 2019-10-17 | Day surgery (SDC) | payer MEDICARE, OTHER ==
[2019-10-15 10:04] VITALS: BMI 25.9
[~2019-10-17] MED LIST: LACTATED RINGERS 1,000 ML IV ONE; LACTATED RINGERS 1,000 ML IV SCH; LIDOCAINE 1% (10MG/ML) FOR IV START INTRADERMA PRN; LIDOCAINE 1% INJ 10MG/ML (20 ML MDV) ONE; PROPOFOL 10 MG/ML 20 ML VIAL IV ONE
[2019-10-17 07:50] VITALS: TEMP 99
[2019-10-17 08:56] VITALS: RESP 16
[2019-10-17 09:09] VITALS: BP 127/76; PULSE 68
--- NOTE | 2019-10-17 09:12 | P.PCN ---
Date of Procedure: 10/17/19 Procedure(s) Performed: BRIEF HISTORY: Patient is a 84-year-old pleasant white female scheduled for an elective colonoscopy as a part of variation of abnormal PET scan that showed abnormality in the cecum. She was recently diagnosed with lung cancer and DVT presently on a Eliquis. Last colonoscopy was many years ago. PROCEDURE PERFORMED: Colonoscopy with biopsy, snare polypectomy and tattooing with Judy ink. PREOPERATIVE DIAGNOSIS: Abnormal PET scan showing increased uptake in the cecum. IV sedation per Anesthesia. PROCEDURE: After informed consent was obtained, the patient, was brought into the endoscopy unit. IV sedation was administered by Anesthesia under continuous monitoring. Digital rectal examination was normal. Initially the Olympus CF-160 flexible video colonoscope was then inserted in the rectum, gradually advanced into the cecum without any difficulty. Careful examination was performed as the scope was gradually being withdrawn. Ileocecal valve and the base of the cecum there was a 4 cm round polypoid lesion cecal lesion and multiple biopsies were done from this area to rule out neoplasm. In the hepatic flexure were 3 polyps measuring between 5 limited to 1 cm in size which were removed by snare polypectomy. In the mid transverse colon at 80 cm from the anal was there was a 3.5-4 cm broad-based polyp that was removed by snare polypectomy (75% of the polyp removed ), followed by tattooing with Judy ink. In the distal transverse colon there was a 2 cm polyp removed by snare polypectomy. In the descending colon there were 3 polyps measuring between 1 cm and 2 cm in size removed by snare polypectomy. Rest of the descending colon, sigmoid colon, and rectum appeared normal. Retroflexion was performed in the rectum and no lesions were seen. The patient tolerated the procedure well. IMPRESSION: 4 cm round polypoid cecal lesion status post biopsy to rule out neoplasm 5 mm and 1 cm 3 hepatic flexure polyp status post-polypectomy 3.5-4 cm broad-based mid transverse colon polyp at 80 cm from the anal verge status post piecemeal snare polypectomy (75% the polyp removed) followed by tattooing with Judy ink 2 cm distal transverse colon polyp status post polypectomy 1 cm and 2 cm descending colon polyp status post polypectomy RECOMMENDATIONS: Findings of this examination were discussed with the patient as well as a family. She was advised to follow with the biopsy results. She'll be seen in office in a week from now..
== END ==
LOC: ORWHC2ENDO 07:30
PROVIDERS: ATTEND Internal Medicine Gastroenterology
DX: D12.0 Benign neoplasm of cecum (principal); D12.3 Benign neoplasm of transverse colon; D12.4 Benign neoplasm of descending colon; I10 Essential (primary) hypertension; E78.5 Hyperlipidemia, unspecified; J44.9 Chronic obstructive pulmonary disease, unspecified; M19.90 Unspecified osteoarthritis, unspecified site; K21.9 Gastro-esophageal reflux disease without esophagitis; K80.20 Calculus of gallbladder without cholecystitis without obstruction; Z88.5 Allergy status to narcotic agent; Z85.118 Personal history of other malignant neoplasm of bronchus and lung; Z87.891 Personal history of nicotine dependence; Z86.711 Personal history of pulmonary embolism; Z79.891 Long term (current) use of opiate analgesic; Z79.01 Long term (current) use of anticoagulants; Z79.899 Other long term (current) drug therapy; Z96.653 Presence of artificial knee joint, bilateral; Z98.890 Other specified postprocedural states; Z98.1 Arthrodesis status; Z86.718 Personal history of other venous thrombosis and embolism
CPT/HCPCS: 88305; 45380; 45385; 45381; J2001; J2704

== ENCOUNTER 2019-11-27 03:18 | Inpatient (IN) | payer MEDICARE, OTHER ==
--- NOTE | 2019-11-27 03:41 | ED ---
SOB HPI - General Chief Complaint: Shortness of Breath Stated Complaint: BRADEN Time Seen by Provider: 11/27/19 03:41 Source: patient, EMS Mode of arrival: EMS - History of Present Illness Initial Comments: Lee Ann is an 84-year-old female with a history of COPD who presents the ER today by ambulance for evaluation of cough and shortness of breath. Patient reports she's had a cough and shortness breath for about a week, she is seen by her primary care physician and prescribed an antibiotic and steroids. She reports despite compliance with that she's had progressive worsening which prompted her to come to the ER today for further evaluation. - Related Data Home Medications Medication Instructions Recorded Confirmed Pravastatin Sodium [Pravachol] 40 mg PO HS 11/24/15 10/15/19 Cholecalciferol [Vitamin D3 (25 1,000 unit PO DAILY 01/15/16 10/15/19 Mcg = 1000 Iu)] Vitamin B Complex 1 cap PO DAILY 01/15/16 10/15/19 FLUoxetine HCL 40 mg PO DAILY 08/03/18 10/15/19 Furosemide [Lasix] 40 mg PO BID@0900,1500 08/03/18 10/15/19 ARIPiprazole [Abilify] 10 mg PO HS 08/31/19 10/15/19 Gabapentin [Neurontin] 300 mg PO TID 08/31/19 10/15/19 Polyethylene Glycol 3350 [Miralax] 17 gm PO DAILY 08/31/19 10/15/19 Sennosides/Docusate Sodium [Senna 1 tab PO BID 08/31/19 10/15/19 Plus 8.6-50 mg Tablet] Albuterol Nebulized [Ventolin 2.5 mg INHALATION BID 10/15/19 10/15/19 Nebulized] Apixaban [Eliquis] 5 mg PO BID 10/15/19 10/15/19 Potassium Chloride [K-Tab ER] 20 meq PO BID 10/15/19 10/15/19 oxyCODONE-APAP 7.5-325MG [Percocet 1 tab PO TID PRN 10/15/19 10/15/19 7.5-325 mg] Allergies Allergy/AdvReac Type Severity Reaction Status Date / Time codeine Allergy Unknown Verified 10/15/19 09:56 nickel Allergy Unknown Verified 10/15/19 09:56 morphine AdvReac ARM TURNED Verified 10/15/19 09:56 RED [place]CK Allergy Unknown Uncoded 10/15/19 09:56 Review of Systems ROS Statement: Those systems with pertinent positive or pertinent negative responses have been documented in the HPI. ROS Other: All systems not noted in ROS Statement are negative. Past Medical History Past Medical History: Cancer, Diabetes Mellitus, Deep Vein Thrombosis (DVT), GERD/Reflux, Hyperlipidemia, Hypertension, Osteoarthritis (OA), Vascular Disorder Additional Past Medical History / Comment(s): HX SKIN CA WITH REMOVAL, HX DVT LT LEG X2, SEVERE VARICOSE VEINS BILATERALLY, NIDDM TYPE II-PT STATES SHE IS NO LONGER ON MEDICATION FOR DIABETES, ARTHRITIS IN BACK, NECK AND SHOULDERS AND HAS SCIATICA, GASTRITIS, DUODENITIS, HIATAL HERNIA, DIVERTICULAR DX, BENIGN POLYPECTOMY, VITAMIN D DEFICIENCY, OCCASIONAL LOWER LEG/PEDAL EDEMA. History of Any Multi-Drug Resistant Organisms: None Reported Past Surgical History: Section, Joint Replacement, Orthopedic Surgery Additional Past Surgical History / Comment(s): Bilateral total knees, egds/colonoscopies, hemorrhoidectomy, cervical fusion, CTR RT WRIST, skin cancer removed from nose, R shoulder arthroscopic sx, L leg DVT removal, L breast benign bx. Past Anesthesia/Blood Transfusion Reactions: No Reported Reaction Past Psychological History: Anxiety, Depression Smoking Status: Former smoker Past Alcohol Use History: Occasional Past Drug Use History: None Reported - Past Family History Father Sister(s) Family Medical History: Cancer Additional Family Medical History / Comment(s): Father of cancer in his "b ack" at the age of 63 yrs. He also had heart problems. Mother Additional Family Medical History / Comment(s): Mother had to have esophageal dilitations. She in her 80's. Sister(s) Family Medical History: Cancer Additional Family Medical History / Comment(s): Pt's sister had breast and lung cancer. General Exam - General Exam Comments Initial Comments: Physical Exam GENERAL: Patient is well-developed and well-nourished. Patient is nontoxic and well- hydrated and is in no distress. HENT: Normocephalic, Atraumatic. EYES: PERRL, EOMI PULMONARY: Expiratory wheezing in all lung ag CARDIOVASCULAR: There is a regular rate and rhythm without any murmurs gallops or rubs. ABDOMEN: Soft and nontender with normal bowel sounds. SKIN: Skin is clear with no lesions or rashes and otherwise unremarkable. : Deferred NEUROLOGIC: Patient is alert and oriented x3. Moving all extremities spontaneously MUSCULOSKELETAL: Normal extremities with adequate strength and full range of motion. No lower extremity swelling or edema. No calf tenderness. PSYCHIATRIC: Normal psychiatric evaluation. Course Vital Signs 11/27/19 11/27/19 11/27/19 03:20 03:28 03:30 Temperature 97.8 F Pulse Rate 109 H 104 H Respiratory 18 22 20 Rate Blood Pressure 115/87 115/87 O2 Sat by Pulse 90 L 93 L Oximetry 11/27/19 11/27/19 11/27/19 03:35 04:00 04:02 Temperature Pulse Rate 105 H 106 H Respiratory 22 Rate Blood Pressure 133/95 O2 Sat by Pulse 92 L 92 L Oximetry 11/27/19 11/27/19 11/27/19 04:10 04:40 05:07 Temperature Pulse Rate 103 H 128 H 115 H Respiratory 26 H 25 H Rate Blood Pressure 150/105 107/73 O2 Sat by Pulse 89 L 94 L Oximetry Medical Decision Making - Medical Decision Making Patient was seen and evaluated, history is obtained from patient is an 84-year-old female history of COPD currently being treated for community- acquired pneumonia with oral antibiotics and steroids presents with worsening cough and shortness of breath On arrival patient's oxygen is in the low 90s, she's given supplement oxygen and a breathing treatment Labs resulted with mildly elevated troponin, no other significant abnormalities noted no leukocytosis leukopenia or any other lab abnormalities consistent with a [place] virus infection Chest x-ray concerning for worsening right-sided consolidation Decision was made to admit the patient for continued respiratory support and IV antibiotics While in the emergency department the patient appeared to develop flash pulmonary edema, she became tachycardic hypoxic diaphoretic and hypertensive Patient was placed on BiPAP and had significant improvement in her vital signs oxygenation and reported feeling better She will be admitted to the selective unit on BiPAP for respiratory failure secondary to flash pulmonary edema and pneumonia - Lab Data Result diagrams: 11/27/19 03:36 11/27/19 03:36 Lab Results 11/27/19 11/27/19 11/27/19 Range/Units 03:36 03:36 03:36 WBC 5.6 (3.8-10.6) k/uL RBC 5.07 (3.80-5.40) m/uL Hgb 12.9 (11.4-16.0) gm/dL Hct 40.7 (34.0-46.0) % MCV 80.2 (80.0-100.0) fL MCH 25.4 (25.0-35.0) pg MCHC 31.6 (31.0-37.0) g/dL RDW 15.4 (11.5-15.5) % Plt Count 350 (150-450) k/uL Neutrophils % 70 % Lymphocytes % 17 % Monocytes % 7 % Eosinophils % 2 % Basophils % 0 % Neutrophils # 3.9 (1.3-7.7) k/uL Lymphocytes # 1.0 (1.0-4.8) k/uL Monocytes # 0.4 (0-1.0) k/uL Eosinophils # 0.1 (0-0.7) k/uL Basophils # 0.0 (0-0.2) k/uL PT 9.7 (9.0-12.0) sec INR 0.9 (<1.2) APTT 24.4 (22.0-30.0) sec Sodium 135 L (137-145) mmol/L Potassium 4.3 (3.5-5.1) mmol/L Chloride 99 (98-107) mmol/L Carbon Dioxide 24 (22-30) mmol/L Anion Gap 12 mmol/L BUN 20 H (7-17) mg/dL Creatinine 0.82 (0.52-1.04) mg/dL Est GFR (CKD-EPI)AfAm 76 (>60 ml/min/1.73 sqM) Est GFR (CKD-EPI)NonAf 66 (>60 ml/min/1.73 sqM) Glucose 186 H (74-99) mg/dL Plasma Lactic Acid Charles (0.7-2.0) mmol/L Calcium 9.3 (8.4-10.2) mg/dL Total Bilirubin 0.3 (0.2-1.3) mg/dL AST 29 (14-36) U/L ALT 17 (4-34) U/L Alkaline Phosphatase 127 H (38-126) U/L Troponin I (0.000-0.034) ng/mL Total Protein 6.6 (6.3-8.2) g/dL Albumin 3.9 (3.5-5.0) g/dL Influenza Type A RNA (Not Detectd) Influenza Type B (PCR) (Not Detectd) 11/27/19 11/27/19 11/27/19 Range/Units 03:36 03:36 03:36 WBC (3.8-10.6) k/uL RBC (3.80-5.40) m/uL Hgb (11.4-16.0) gm/dL Hct (34.0-46.0) % MCV (80.0-100.0) fL MCH (25.0-35.0) pg MCHC (31.0-37.0) g/dL RDW (11.5-15.5) % Plt Count (150-450) k/uL Neutrophils % % Lymphocytes % % Monocytes % % Eosinophils % % Basophils % % Neutrophils # (1.3-7.7) k/uL Lymphocytes # (1.0-4.8) k/uL Monocytes # (0-1.0) k/uL Eosinophils # (0-0.7) k/uL Basophils # (0-0.2) k/uL PT (9.0-12.0) sec INR (<1.2) APTT (22.0-30.0) sec Sodium (137-145) mmol/L Potassium (3.5-5.1) mmol/L Chloride (98-107) mmol/L Carbon Dioxide (22-30) mmol/L Anion Gap mmol/L BUN (7-17) mg/dL Creatinine (0.52-1.04) mg/dL Est GFR (CKD-EPI)AfAm (>60 ml/min/1.73 sqM) Est GFR (CKD-EPI)NonAf (>60 ml/min/1.73 sqM) Glucose (74-99) mg/dL Plasma Lactic Acid Charles 1.6 (0.7-2.0) mmol/L Calcium (8.4-10.2) mg/dL Total Bilirubin (0.2-1.3) mg/dL AST (14-36) U/L ALT (4-34) U/L Alkaline Phosphatase (38-126) U/L Troponin I 0.046 H* (0.000-0.034) ng/mL Total Protein (6.3-8.2) g/dL Albumin (3.5-5.0) g/dL Influenza Type A RNA Not Detected (Not Detectd) Influenza Type B (PCR) Not Detected (Not Detectd) Disposition Clinical Impression: CAP (community acquired pneumonia), COPD (chronic obstructive pulmonary dise ase), Flash pulmonary edema, Sepsis with acute hypoxic respiratory failure Disposition: ADMITTED IP TO THIS HOSP Condition: Serious
[2019-11-27] MEDS ORDERED: IPRATROPIUM-ALBUTEROL 3 ML NEB INHALATION STA ×2 (03:42→04:45)
[2019-11-27] MEDS: SODIUM CHLORIDE 0.9% 500 ML 500 ML IV SCH ×2 (03:46→04:47)
[2019-11-27 03:54] LABS: Basophils % (A) 0 %; Eosinophils # (A) 0.1 k/uL (0-0.7); Eosinophils % (A) 2 %; HCT 40.7 % (34.0-46.0); HGB 12.9 gm/dL (11.4-16.0); Lymphocytes % (A) 17 %; MCH 25.4 pg (25.0-35.0); MCHC 31.6 g/dL (31.0-37.0); MCV 80.2 fL (80.0-100.0); Mean Platelet Volume 7.1; Monocytes # (A) 0.4 k/uL (0-1.0); Monocytes % (A) 7 %; Neutrophils # (A) 3.9 k/uL (1.3-7.7); Neutrophils % (A) 70 %; Platelet Count 350 k/uL (150-450); RBC 5.07 m/uL (3.80-5.40); RDW 15.4 % (11.5-15.5); WBC 5.6 k/uL (3.8-10.6)
[2019-11-27 04:03] LABS: Albumin 3.9 g/dL (3.5-5.0); Calcium 9.3 mg/dL (8.4-10.2); Potassium 4.3 mmol/L (3.5-5.1); Total Bilirubin 0.3 mg/dL (0.2-1.3); Total Protein 6.6 g/dL (6.3-8.2)
[2019-11-27 04:06] LABS: INR 0.9 (<1.2); Partial Thromboplastin Time 24.4 sec (22.0-30.0); Prothrombin Time 9.7 sec (9.0-12.0)
[2019-11-27] MEDS ORDERED: methylPREDNISolone SOD SUCCI 125 MG/2 ML VIAL IV STA (04:28)
[2019-11-27] MEDS ORDERED: AZITHROMYCIN 500 MG in SODIUM CHLORIDE 0.9% 250 ML IVPB STA (04:28)
[2019-11-27] MEDS ORDERED: cefTRIAXone IN SWFI 1,000 MG/10 ML SYRINGE IVP STA (04:28)
--- NOTE | 2019-11-27 04:34 | XR ---
EXAMINATION TYPE: XR chest 2V DATE OF EXAM: 11/27/2019 COMPARISON: 08/31/2019 HISTORY: Difficulty breathing TECHNIQUE: FINDINGS: There is coarsening of the lung markings. There is interstitial patchy infiltrate in the ri ght lung more than the left. There is no definite pleural effusion. There is increased density at the right pulmonary hilum. There is no heart failure. IMPRESSION: Right hilar mass like density increased compared to last exam. Increased pulmonary inters titial infiltrate in the right lung that suggests progression of disease. No heart failure seen.
[2019-11-27] MEDS ORDERED: PNEUMONIA PROTOCOL UTILIZED 1 EACH MISC PO PRN (04:40)
[2019-11-27] MEDS ORDERED: IPRATROPIUM-ALBUTEROL 3 ML NEB INHALATION PRN (04:40)
[2019-11-27] MEDS ORDERED: FUROSEMIDE 10 MG/ML 4 ML VIAL ONE (05:49)
[2019-11-27] MEDS ORDERED: LORazepam 2 MG/ML INJ IV STA (06:08)
[2019-11-27 06:14] LABS: Glucose,Whole Blood 379 mg/dL (75-99)
[2019-11-27] MEDS: INSULIN ASPART (NovoLOG) 100 UNIT/ML VIAL SQ SCH ×4 (07:05→22:51)
[2019-11-27 08:20] LABS: Amorphous Sediment,Urine Rare /hpf; Appearance,Urine Cloudy (Clear); Bacteria,Urine Occasional /hpf; Bilirubin,Urine Negative (Negative); Blood,Urine Negative (Negative); Color,Urine Yellow; Glucose,Urine (UA) Negative (Negative); Hyaline Casts,Urine 49 /lpf (0-2); Ketones,Urine Negative (Negative); Leukocyte Esterase,Urine Negative (Negative); Mucus,Urine Occasional /hpf; Nitrite,Urine Negative (Negative); PH, Urine 5.5 (5.0-8.0); Protein,Urine 2+ (Negative); Specific Gravity,Urine 1.022 (1.001-1.035); Squamous Epithelial Cell,Urine 1 /hpf (0-4); WBC,Urine 1 /hpf (0-5)
[2019-11-27] MEDS: MORPHINE SULFATE 2 MG/ML SYRINGE IVP PRN ×4 (08:39→21:41)
[2019-11-27 09:45] VITALS: BMI 27.6
[2019-11-27] MEDS ORDERED: LEVOFLOXACIN 750 MG TAB PO SCH (10:30)
[2019-11-27] MEDS: PIPERACILLIN-TAZOBACTAM 3.375 GM in SODIUM CHLORIDE 0.9% 100 ML IVPB SCH ×2 (10:39→20:17)
[2019-11-27] MEDS: SODIUM CHLORIDE 0.9% 1,000 ML IV SCH (10:41)
[2019-11-27] MEDS: ENOXAPARIN 100 MG/ML SYRINGE SQ SCH (10:46)
[2019-11-27] MEDS: methylPREDNISolone SOD SUCCI 125 MG/2 ML VIAL IV SCH ×2 (10:49→17:21)
[2019-11-27] MEDS ORDERED: LEVOFLOXACIN 750MG-D5W PMX 750 MG in DEXTROSE/WATER 1 150ML.BAG IVPB SCH (11:00)
[2019-11-27 11:46] LABS: Glucose,Whole Blood 220 mg/dL (75-99)
--- NOTE | 2019-11-27 12:47 | P.CNPUL ---
History of Present Illness Consult date: 11/27/19 Reason for consult: pneumonia, lung mass History of present illness: There is an 84-year-old female patient came into the emergency department on 08/31/2019 because of an acute chest pain and shortness of breath. The patient was hypoxic with a pulse ox of 87% on room air. At that point, a CT angiogram was done and it showed a large pulmonary embolism within the right main pulmonary artery and within the lingular branch of the left. Left lower lobe pulmonary emboli were also evidence. The patient was also found to have a large 6.1 x 4.2 x 6.3 cm mass in the posterior right lower lobe. She was also found to have a right thyroid lobe enlargement which was heterogeneous measuring 4.6 x 4.9 cm. At that point, the patient was transferred to [facility] and she underwent Ekos treatment for pulmonary embolism. Subsequently she underwent a fine-needle aspirate of the right lower lobe mass that confirmed the presence of adenocarcinoma. She was placed on Eliquis and she was discharged home. Subsequently she was referred to oncology and she was already seen by Dr. Casas. As part of her workup, a PET scan was done that showed suspicious metabolic uptake in the right lung mass consistent with neoplasm. No additional lung lesions or suspicious thoracic adenopathy was noted. Left adrenal mass or 2 adjacent masses were non-metabolically active and they were stable compared to previous imaging that was done 2015 consistent with benign etiology. There was metabolic soft tissue activity in the cecum and this was worrisome for primary cecal carcinoma. She is scheduled to have a colonoscopy done on 10/17/2019. The colonoscopy was completed and the patient was not found to have any GI malignancy. 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 Extension of the tumor into the superior sagittal sinus and sinus tumor thrombosis was considered. The possibility of extension into the venous sinus was not completely excluded. There were 2 additional subcentimeter areas of extra-axial moderate enhancement compatible with metastases. As such, the patient does note having stage IV adenocarcinoma of the lung. She is quite limited in terms of exercise capacity. She moves around with the help of a walker. She got quite limited approximately 3 years ago when she underwent her gallbladder surgery. 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 She can walk probably 10 feet on a flat surface without any assistance. Otherwise she moves around with the help of a walker. No recurrent pneumonias. No recurrent bronchitis. No previous hospitalization for any other pulmonary complications. She is an ex-smoker and she quit smoking back in the 80s. No history of any coronary artery disease. No congestion heart failure. No myocardial infarction. No history of cardiac arrhythmias. She has history of depression that is well treated with a combination of antidepressant medication. She has also hypertension. The pulmonary embolism is being treated. Note that she also has a remote history of DVT of the left lower extremity. That the CT guided biopsy of the right lower lobe mass revealed adenocarcinoma of the lung, P53 mutation was positive, PDL 1 was 0%. This patient came into the emergency department yesterday because of rapid deterioration and the respiratory status. She apparently was at radiation oncology yesterday receiving radiation therapy to her chest. She has received a total of 2 weeks of radiation therapy to the chest. The patient was having increased cough and shortness of breath and she came into the emergency department where she was found to be hypoxic and in significant respiratory distress. Chest x-ray was done and showed a right hilar mass in addition to a increased infiltration of the right lung. The white cell count was at 5.6. He was at 12.9. The proBNP level is 848. Troponins of 0.046. BUN is at 20 with a creatinine of 0.8. Glucose of 220. Influenza screen was negative. The patient has been placed in droplet isolation for suspected covid 19 infection. At the time of my evaluation, the patient was on a BiPAP. I made adjustments in up with the patient's BiPAP at a pressure of 17/8 cm of water. She is able to generate a tidal volume of more than 500. Discussed the case with the daughter. Decided to proceed with some antibiotic treatment and steroid treatment pending further progress. The patient and her daughter opted to go with a DNR/DNI CODE STATUS. Nevertheless they're 1 to be offered treatment for the next 24-48 hours and assess her clinical response. She is unable to speak up. His that this point in time. She is quite tachypneic. Hemodynamically stable and well. No angina. No palpitation. No fever for now. No significant swelling in lower extremities. Based on FEV1 is noted of 74% of predicted consistent with mild COPD. Review of Systems Review of Systems Comprehensive General Adult ROS Reported by Patient Constitutional Constitutional: no fever, no night sweats, no significant weight gain, no exercise intolerance, weight loss (16 lbs) Eyes Eyes: no dry eyes, no vision change, no irritation ENMT Ears: no difficulty hearing, no ear pain Nose: no frequent nosebleeds, no nose problems, no sinus problems Mouth/Throat: no sore throat, no bleeding gums, no snoring, no dry mouth, no mouth ulcers, no oral abnormalities, no teeth problems Cardiovascular Cardiovascular: no chest pain, no arm pain on exertion, no shortness of breath when lying down, no palpitations, no known heart murmur, shortness of breath when walking Respiratory Respiratory: Worsening shortness of breath and cough and increased congestion Gastrointestinal Gastrointestinal: no abdominal pain, no nausea, no vomiting, no constipation, normal appetite, no diarrhea, not vomiting blood, no dyspepsia, no GERD Genitourinary Genitourinary: no incontinence, no difficulty urinating, no hematuria, no increased frequency Musculoskeletal Musculoskeletal: no muscle aches, no muscle weakness, no arthralgias/joint pain, no swelling in the extremities, back pain (gait is unsteady and the patient walks around with the help of a walker) Integumentary Skin: no abnormal mole, no jaundice, no rashes, no laceration Neurologic Neurologic: no loss of consciousness, no weakness, no numbness, no seizures, no dizziness, no migraines, no headaches, no tremor Psychiatric Psych: no depression, no sleep disturbances, feeling safe in a relationship, no alcohol abuse, no anxiety, no hallucinations, no suicidal thoughts Endocrine Endocrine: fatigue Hematologic/Lymphatic Hematologic/Lymphatic no swollen glands, no bruising, no excessive bleeding Allergic/Immunologic Allergy/Immunologic: no runny nose, no sinus pressure, no itching, no hives, no frequent sneezing ROS unobtainable: due to endotracheal tube Past Medical History Past Medical History: Cancer (Non-small cell lung cancer, stage IV, COPD with FEV1 of 74% of predicted, previous history of DVT and pulmonary embolism, diabetes mellitus, hyperlipidemia, osteoarthritis, hypertension, PTOT, diverticular disease), COPD, Diabetes Mellitus, Deep Vein Thrombosis (DVT), GERD/Reflux, Hyperlipidemia, Hypertension, Osteoarthritis (OA), Vascular Disorder Additional Past Medical History / Comment(s): HX SKIN CA WITH REMOVAL, HX DVT LT LEG X2, SEVERE VARICOSE VEINS BILATERALLY, NIDDM TYPE II-PT STATES SHE IS NO LONGER ON MEDICATION FOR DIABETES, ARTHRITIS IN BACK, NECK AND SHOULDERS AND HAS SCIATICA, GASTRITIS, DUODENITIS, HIATAL HERNIA, DIVERTICULAR DX, BENIGN POLYPECTOMY, VITAMIN D DEFICIENCY, OCCASIONAL LOWER LEG/PEDAL EDEMA. History of Any Multi-Drug Resistant Organisms: None Reported Past Surgical History: Section, Joint Replacement, Orthopedic Surgery Additional Past Surgical History / Comment(s): Bilateral total knees, egds/col onoscopies, hemorrhoidectomy, cervical fusion, CTR RT WRIST, skin cancer removed from nose, R shoulder arthroscopic sx, L leg DVT removal, L breast benign bx. Past Anesthesia/Blood Transfusion Reactions: No Reported Reaction Past Psychological History: Anxiety, Depression Smoking Status: Former smoker Past Alcohol Use History: Occasional Past Drug Use History: None Reported - Past Family History Father Sister(s) Family Medical History: Cancer Additional Family Medical History / Comment(s): Father of cancer in his "back" at the age of 63 yrs. He also had heart problems. Mother Additional Family Medical History / Comment(s): Mother had to have esophageal dilitations. She in her 80's. Sister(s) Family Medical History: Cancer Additional Family Medical History / Comment(s): Pt's sister had breast and lung cancer. Medications and Allergies Home Medications Medication Instructions Recorded Confirmed Type Pravastatin Sodium [Pravachol] 40 mg PO HS 11/24/15 11/27/19 History Cholecalciferol [Vitamin D3 (25 1,000 unit PO DAILY 01/15/16 11/27/19 History Mcg = 1000 Iu)] Vitamin B Complex 1 cap PO DAILY 01/15/16 11/27/19 History FLUoxetine HCL 40 mg PO DAILY 08/03/18 11/27/19 History Furosemide [Lasix] 40 mg PO BID@0900,1500 08/03/18 11/27/19 History ARIPiprazole [Abilify] 10 mg PO HS 08/31/19 11/27/19 History Gabapentin [Neurontin] 300 mg PO TID 08/31/19 11/27/19 History Polyethylene Glycol 3350 [Miralax] 17 gm PO DAILY 08/31/19 11/27/19 History Sennosides/Docusate Sodium [Senna 1 tab PO BID 08/31/19 11/27/19 History Plus 8.6-50 mg Tablet] Albuterol Nebulized [Ventolin 2.5 mg INHALATION RT-QID 10/15/19 11/27/19 History Nebulized] Apixaban [Eliquis] 5 mg PO BID 10/15/19 11/27/19 History Potassium Chloride [K-Tab ER] 20 meq PO BID 10/15/19 11/27/19 History oxyCODONE-APAP 7.5-325MG [Percocet 1 tab PO TID PRN 10/15/19 11/27/19 History 7.5-325 mg] Acetaminophen Tab [Tylenol] 650 mg PO Q4H PRN 11/27/19 11/27/19 History Ipratropium-Albuterol Nebulize 3 ml INHALATION RT-QID PRN 11/27/19 11/27/19 History [Duoneb 0.5 mg-3 mg/3 ml Soln] Allergies Allergy/AdvReac Type Severity Reaction Status Date / Time codeine Allergy Unknown Verified 11/27/19 10:38 nickel Allergy Unknown Verified 11/27/19 10:38 morphine AdvReac ARM TURNED Verified 11/27/19 10:38 RED DUCK Allergy Unknown Uncoded 10/15/19 09:56 Physical Exam Vitals: Vital Signs Temp Pulse Pulse Resp BP BP Pulse Ox 11/27/19 06:51 34 H 11/27/19 06:13 121 H 34 H 150/52 95 11/27/19 05:07 115 H 25 H 107/73 94 L 11/27/19 04:40 128 H 26 H 150/105 89 L 11/27/19 04:10 103 H 11/27/19 04:02 106 H 11/27/19 04:00 105 H 22 133/95 92 L 11/27/19 03:35 92 L 11/27/19 03:30 104 H 20 115/87 93 L 11/27/19 03:28 22 11/27/19 03:20 97.8 F 109 H 18 115/87 90 L Intake and Output 11/26/19 11/27/19 11/27/19 22:59 06:59 14:59 Other: Weight 92.5 kg General Appearance the patient is a moderate degree of respiratory distress and currently she is able to tolerate a full face BiPAP mask at a pressure of 17/8 cm of water. She is sick sinus with a BiPAP machine at this point in time pH is unable to speak in full sentences and the patient is being ventilated for now. She is awake and alert. She is able to respond by saying yes or no whenever asked questions. Daughter is at the bedside. Head exam was generally normal. There was no scleral icterus or corneal arcus. Mucous membranes were moist. HEENT no pursed lip breathing, no jugular venous distention, no mucous membrane cyanosis, no perioral cyanosis, mallampati classification: class 1 Chest reveals crackles in the right lung compared to the left. Scattered expiratory wheezes and rhonchi heard throughout the lung his bilaterally. Heart no right ventricular heave, no distant heart sounds, no s3 gallop, (normal) jugular vein: jugular venous distention: by 0cm, (normal) jugular vein GI bowel sounds: hyperactive (borborygmi), bowel sounds: diminished or absent Extremities no cyanosis, no clubbing, no edema Neurologic no decreased mental status, no somnolence, no confusion Assisstive Devices: ambulates with no assitive devices, ambulates with walker Gait and Mobility: gait WNL, full weight bearing, unsteady Skin General Appearance normal, (normal) normal except as noted Results - Laboratory Findings CBC and BMP: 11/27/19 03:36 11/27/19 03:36 PT/INR, D-dimer PT 9.7 sec (9.0-12.0) 11/27/19 03:36 INR 0.9 (<1.2) 11/27/19 03:36 Abnormal lab findings: Abnormal Labs 11/27/19 11/27/19 11/27/19 03:36 03:36 05:53 Sodium 135 L BUN 20 H Glucose 186 H POC Glucose (mg/dL) 379 H Alkaline Phosphatase 127 H Troponin I 0.046 H* - Diagnostic Findings Chest x-ray: image reviewed Assessment and Plan Plan: 1 metastatic stage IV adenocarcinoma of the right lung with INFORMATION SYSTEMS OPERATOR metastases. The patient was receiving radiation therapy to the chest on outpatient basis and the patient has completed 1 week course of treatment. 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 Less infiltration of the left lung is seen today chest x-ray. Rule out radiation pneumonitis. Rule out superimposed bacterial pneumonia. Rule out covid 19 infection. The patient is currently on BiPAP at a pressure of 17/8 cm of water. 3 acute shortness of breath secondary to above currently on BiPAP 4 COPD with FEV1 of 74% of predicted at baseline 5 history of DVT of the left lower extremity and pulmonary embolism post EKOS therapy and the patient is on long-term anticoagulation 6 diabetes mellitus 7 hypertension 8 hyperlipidemia 9 peripheral vascular disease 10 history of skin cancer 11 hiatal hernia 12 diverticular disease 13 osteoarthritis in significant his mobility and gait and the patient has undergone also cervical spine fusion along with multiple orthopedic interventions. She has difficulty with his mobility and the patient uses a walker. 14 troponin leak Plan Keep the patient up with isolation regarding the possibility of Covid 19 infection Cover the patient with broad-spectrum antibiotics including examination of Zosyn and Levaquin Start the patient IV Solu Medrol 60 mg every 6 hours Check LDH, d-dimer, ferritin levels Keep the BiPAP pressure of 17/8 cm of water and the patient's been adequately ventilated and oxygen for now We'll may need to initiate bronchodilator treatment once the patient's Covid status is established Stop anticoagulation for now and replace the patient with Lovenox 90 mg subcu every 12 hours as the patient is unable to take oral anticoagulants for now We'll continue to follow. Condition is critical. DNR/DNI CODE STATUS has been established.
[2019-11-27] MEDS ORDERED: oxyCODONE-APAP 7.5-325MG 1 EACH TAB PO PRN (14:18)
[2019-11-27] MEDS ORDERED: ACETAMINOPHEN TAB 325 MG TAB PO PRN (14:18)
--- NOTE | 2019-11-27 14:25 | P.HPIM ---
History of Present Illness 84-year-old pleasant female came in with compensative shortness of breath with rest rapid respiratory deterioration and patient is presently on BiPAP. Patient chest x-ray showing interstitial infiltrates predominantly in the right side. Patient the was diagnosed with lung cancer metastatic disease to the brain. And has adenocarcinoma of the lung. Patient is sitting recently received a radiation therapy and the patient is supposed to get radiation therapy to the brain metastases. Patient is predominantly sagittal sinus involvement with the metastatic disease. Patient BNP is only 48 patient doesn't have any JVD no crackles diminished air entry into bilateral lung ag. Pulmonary evaluated the patient and CT of the chest was ordered to rule out pulmonary embolism. Patient and family wanted to continue the treatment for her lung cancer. Patient was started on empiric antibiotics for the pneumonia although there is some infiltrate in the right hilar region which are mostly appears like mass and interstitial prominence is probably radiation injury to the lung. Patient is minimally elevated troponins. Patient doesn't have any fever chills patient was comparing of cough which is a dry cough. Leukocytosis no fever Review of Systems REVIEW OF SYSTEMS: CONSTITUTIONAL: No fever, no malaise, no fatigue. HEENT: No recent visual problems or hearing problems. Denied any sore throat. CARDIOVASCULAR: No chest pain, orthopnea, PND, no palpitations, no syncope. PULMONARY: As mentioned in HPI GASTROINTESTINAL: No diarrhea, no nausea, no vomiting, no abdominal pain. NEUROLOGICAL: No headaches, no weakness, no numbness. HEMATOLOGICAL: Denies any bleeding or petechiae. GENITOURINARY: Denies any burning micturition, frequency, or urgency. MUSCULOSKELETAL/RHEUMATOLOGICAL: Denies any joint pain, swelling, or any muscle pain. ENDOCRINE: Denies any polyuria or polydipsia. The rest of the 14-point review of systems is negative. Past Medical History Past Medical History: Cancer (Non-small cell lung cancer, stage IV, COPD with FEV1 of 74% of predicted, previous history of DVT and pulmonary embolism, diabetes mellitus, hyperlipidemia, osteoarthritis, hypertension, PTOT, diverticular disease), COPD, Diabetes Mellitus, Deep Vein Thrombosis (DVT), GERD/Reflux, Hyperlipidemia, Hypertension, Osteoarthritis (OA), Vascular Disorder Additional Past Medical History / Comment(s): HX SKIN CA WITH REMOVAL, HX DVT LT LEG X2, SEVERE VARICOSE VEINS BILATERALLY, NIDDM TYPE II-PT STATES SHE IS NO LONGER ON MEDICATION FOR DIABETES, ARTHRITIS IN BACK, NECK AND SHOULDERS AND HAS SCIATICA, GASTRITIS, DUODENITIS, HIATAL HERNIA, DIVERTICULAR DX, BENIGN POLYPECTOMY, VITAMIN D DEFICIENCY, OCCASIONAL LOWER LEG/PEDAL EDEMA. History of Any Multi-Drug Resistant Organisms: None Reported Past Surgical History: Section, Joint Replacement, Orthopedic Surgery Additional Past Surgical History / Comment(s): Bilateral total knees, egds/colo noscopies, hemorrhoidectomy, cervical fusion, CTR RT WRIST, skin cancer removed from nose, R shoulder arthroscopic sx, L leg DVT removal, L breast benign bx. Past Anesthesia/Blood Transfusion Reactions: No Reported Reaction Past Psychological History: Anxiety, Depression Smoking Status: Former smoker Past Alcohol Use History: Occasional Past Drug Use History: None Reported - Past Family History Father Sister(s) Family Medical History: Cancer Additional Family Medical History / Comment(s): Father of cancer in his "back" at the age of 63 yrs. He also had heart problems. Mother Additional Family Medical History / Comment(s): Mother had to have esophageal dilitations. She in her 80's. Sister(s) Family Medical History: Cancer Additional Family Medical History / Comment(s): Pt's sister had breast and lung cancer. Medications and Allergies Home Medications Medication Instructions Recorded Confirmed Type Pravastatin Sodium [Pravachol] 40 mg PO HS 11/24/15 11/27/19 History Cholecalciferol [Vitamin D3 (25 1,000 unit PO DAILY 01/15/16 11/27/19 History Mcg = 1000 Iu)] Vitamin B Complex 1 cap PO DAILY 01/15/16 11/27/19 History FLUoxetine HCL 40 mg PO DAILY 08/03/18 11/27/19 History Furosemide [Lasix] 40 mg PO BID@0900,1500 08/03/18 11/27/19 History ARIPiprazole [Abilify] 10 mg PO HS 08/31/19 11/27/19 History Gabapentin [Neurontin] 300 mg PO TID 08/31/19 11/27/19 History Polyethylene Glycol 3350 [Miralax] 17 gm PO DAILY 08/31/19 11/27/19 History Sennosides/Docusate Sodium [Senna 1 tab PO BID 08/31/19 11/27/19 History Plus 8.6-50 mg Tablet] Albuterol Nebulized [Ventolin 2.5 mg INHALATION RT-QID 10/15/19 11/27/19 History Nebulized] Apixaban [Eliquis] 5 mg PO BID 10/15/19 11/27/19 History Potassium Chloride [K-Tab ER] 20 meq PO BID 10/15/19 11/27/19 History oxyCODONE-APAP 7.5-325MG [Percocet 1 tab PO TID PRN 10/15/19 11/27/19 History 7.5-325 mg] Acetaminophen Tab [Tylenol] 650 mg PO Q4H PRN 11/27/19 11/27/19 History Ipratropium-Albuterol Nebulize 3 ml INHALATION RT-QID PRN 11/27/19 11/27/19 History [Duoneb 0.5 mg-3 mg/3 ml Soln] Allergies Allergy/AdvReac Type Severity Reaction Status Date / Time codeine Allergy Unknown Verified 11/27/19 10:38 nickel Allergy Unknown Verified 11/27/19 10:38 morphine AdvReac ARM TURNED Verified 11/27/19 10:38 RED DUCK Allergy Unknown Uncoded 10/15/19 09:56 Physical Exam Vitals: Vital Signs Temp Pulse Pulse Resp BP BP Pulse Ox 11/27/19 12:00 105 H 20 124/76 95 11/27/19 10:54 104 H 24 121/76 95 11/27/19 06:51 34 H 11/27/19 06:13 121 H 34 H 150/52 95 11/27/19 05:07 115 H 25 H 107/73 94 L 11/27/19 04:40 128 H 26 H 150/105 89 L 11/27/19 04:10 103 H 11/27/19 04:02 106 H 11/27/19 04:00 105 H 22 133/95 92 L 11/27/19 03:35 92 L 11/27/19 03:30 104 H 20 115/87 93 L 11/27/19 03:28 22 11/27/19 03:20 97.8 F 109 H 18 115/87 90 L Intake and Output 11/26/19 11/27/19 11/27/19 22:59 06:59 14:59 Other: Weight 92.5 kg 92.5 kg PHYSICAL EXAMINATION: GENERAL: The patient is alert and oriented x3, not in any acute distress. Well developed, well nourished. Patient is on BiPAP at this time HEENT: Pupils are round and equally reacting to light. EOMI. No scleral icterus. No conjunctival pallor. Normocephalic, atraumatic. No pharyngeal erythema. No thyromegaly. CARDIOVASCULAR: S1 and S2 present. No murmurs, rubs, or gallops. PULMONARY: Decreased air entry and mild expiratory wheezing. ABDOMEN: Soft, nontender, nondistended, normoactive bowel sounds. No palpable organomegaly. MUSCULOSKELETAL: No joint swelling or deformity. EXTREMITIES: No cyanosis, clubbing, or pedal edema. NEUROLOGICAL: Gross neurological examination did not reveal any focal deficits. SKIN: No rashes. Results CBC & Chem 7: 11/27/19 03:36 11/27/19 03:36 Labs: Abnormal Lab Results - Last 24 Hours (Table) 11/27/19 11/27/19 11/27/19 Range/Units 03:36 03:36 05:53 D-Dimer (<0.60) mg/L FEU Sodium 135 L (137-145) mmol/L BUN 20 H (7-17) mg/dL Glucose 186 H (74-99) mg/dL POC Glucose (mg/dL) 379 H (75-99) mg/dL Alkaline Phosphatase 127 H (38-126) U/L Troponin I 0.046 H* (0.000-0.034) ng/mL Urine Appearance (Clear) Urine Protein (Negative) Amorphous Sediment (None) /hpf Urine Bacteria (None) /hpf Hyaline Casts (0-2) /lpf Urine Mucus (None) /hpf 11/27/19 11/27/19 11/27/19 Range/Units 06:50 10:28 11:45 D-Dimer 5.44 H (<0.60) mg/L FEU Sodium (137-145) mmol/L BUN (7-17) mg/dL Glucose (74-99) mg/dL POC Glucose (mg/dL) 220 H (75-99) mg/dL Alkaline Phosphatase (38-126) U/L Troponin I (0.000-0.034) ng/mL Urine Appearance Cloudy H (Clear) Urine Protein 2+ H (Negative) Amorphous Sediment Rare H (None) /hpf Urine Bacteria Occasional H (None) /hpf Hyaline Casts 49 H (0-2) /lpf Urine Mucus Occasional H (None) /hpf Assessment and Plan Plan: Acute hypoxic respiratory failure with pulmonary infiltrates most probably secondary to radiation pneumonitis along with some COPD exacerbation patient will be continued on systemic steroids and inhalational treatments CT of the chest is being obtained possibility of covid-19 is low but will be tested for this. Possibility of bacterial or alcohol or viral pneumonia is low. -Adenocarcinoma of the right lung status post radiation therapy metastatic disease to brain -COPD with mild acute exacerbation -History of DVT in the right lower extremity for which patient denied correlation is to continue next and heparin type 2 diabetes mellitus -Hyperlipidemia -Peripheral vascular disease -Deconditioning and poor functionality patient the uses a walker at home -Severe osteoarthritis of the spineOn discharge, the patient has been prescribed multiple orthopedic interventions -Mildly elevated troponin secondary to hypoxemia no evidence of acute myocardial infarction
[2019-11-27] MEDS: GABAPENTIN 300 MG CAP PO SCH ×2 (17:14→22:51)
[2019-11-27 17:21] LABS: Glucose,Whole Blood 143 mg/dL (75-99)
[2019-11-27] MEDS ORDERED: APIXABAN 5 MG TAB PO SCH (21:00)
[2019-11-27] MEDS ORDERED: PRAVASTATIN SODIUM 40 MG TAB PO SCH (21:00)
[2019-11-27] MEDS ORDERED: ARIPiprazole 10 MG TAB PO SCH (21:00)
[2019-11-27] MEDS: SENNOSIDES-DOCUSATE SODIUM 1 EACH TAB PO SCH (22:51)
[2019-11-28] MEDS ORDERED: ENOXAPARIN 80 MG/0.8 ML SYRINGE SQ SCH
[2019-11-28] MEDS: methylPREDNISolone SOD SUCCI 125 MG/2 ML VIAL IV SCH ×2 (00:10→06:01)
[2019-11-28] MEDS: MORPHINE SULFATE 2 MG/ML SYRINGE IVP PRN ×3 (01:36→11:05)
[2019-11-28 02:50] LABS: ABG Base Excess -3.9 mmol/L; ABG HCO3 22 mmol/L (21-25); ABG Oxygen Saturation 98.4 % (94-97); ABG PCO2 40 mmHg (35-45); ABG PH 7.34 (7.35-7.45); ABG PO2 102 mmHg (83-108); ABG TCO2 23 mmol/L (19-24); Allen Test Performed? Yes
[2019-11-28] MEDS: PIPERACILLIN-TAZOBACTAM 3.375 GM in SODIUM CHLORIDE 0.9% 100 ML IVPB SCH (03:48)
[2019-11-28] MEDS ORDERED: LORazepam 2 MG/ML INJ IV STA (03:49)
[2019-11-28] MEDS ORDERED: LORazepam 2 MG/ML INJ ONE (03:54)
[2019-11-28] MEDS: SODIUM CHLORIDE 0.9% 1,000 ML IV SCH ×2 (05:18→10:22)
[2019-11-28] MEDS: INSULIN ASPART (NovoLOG) 100 UNIT/ML VIAL SQ SCH ×2 (06:28→13:09)
[2019-11-28 06:33] LABS: Basophils % (A) 0 %; Eosinophils % (A) 0 %; HCT 45.2 % (34.0-46.0); HGB 13.6 gm/dL (11.4-16.0); Hypochromasia Slight; Lymphocytes # (A) 0.3 k/uL (1.0-4.8); Lymphocytes % (A) 2 %; MCH 24.9 pg (25.0-35.0); MCV 83.1 fL (80.0-100.0); Mean Platelet Volume 7.2; Monocytes % (A) 7 %; Neutrophils # (A) 12.8 k/uL (1.3-7.7); Neutrophils % (A) 90 %; Platelet Count 373 k/uL (150-450); RBC 5.44 m/uL (3.80-5.40); RDW 15.6 % (11.5-15.5); WBC 14.2 k/uL (3.8-10.6)
[2019-11-28 07:16] LABS: Albumin 3.7 g/dL (3.5-5.0); Calcium 9.4 mg/dL (8.4-10.2); Potassium 5.5 mmol/L (3.5-5.1); Total Bilirubin 0.5 mg/dL (0.2-1.3); Total Protein 6.5 g/dL (6.3-8.2)
--- NOTE | 2019-11-28 07:35 | XR ---
EXAMINATION TYPE: XR chest 1V portable DATE OF EXAM: 11/28/2019 Comparison: 11/27/2019 Clinical History: 84-year-old female shortness of breath r/o COVID Findings: Heart upper limits of normal in size. Patchy and confluent airspace opacity is increasing throughout right lung and also focally at the left base. No pleural effusion. Impression: Increasing airspace disease throughout the right lung and also at the peripheral left base. Consider multifocal pneumonia.
[2019-11-28] MEDS ORDERED: POLYETHYLENE GLYCOL 3350 17 GM POWD.PACK PO SCH (09:00)
[2019-11-28] MEDS ORDERED: FLUoxetine HCL 20 MG CAP PO SCH (09:00)
[2019-11-28] MEDS: ENOXAPARIN 100 MG/ML SYRINGE SQ SCH (10:18)
[2019-11-28] MEDS: SENNOSIDES-DOCUSATE SODIUM 1 EACH TAB PO SCH (13:08)
[2019-11-28] MEDS: GABAPENTIN 300 MG CAP PO SCH (13:08)
--- NOTE | 2019-11-28 13:55 | P.PN ---
Subjective Progress Note Date: 11/28/19 Principal diagnosis: pneumonia, lung mass, possible COVID-19 There is an 84-year-old female patient came into the emergency department on 08/31/2019 because of an acute chest pain and shortness of breath. The patient was hypoxic with a pulse ox of 87% on room air. At that point, a CT angiogram was done and it showed a large pulmonary embolism within the right main pulmonary artery and within the lingular branch of the left. Left lower lobe pulmonary emboli were also evidence. The patient was also found to have a large 6.1 x 4.2 x 6.3 cm mass in the posterior right lower lobe. She was also found to have a right thyroid lobe enlargement which was heterogeneous measuring 4.6 x 4.9 cm. At that point, the patient was transferred to [facility] and she underwent Ekos treatment for pulmonary embolism. Subsequently she underwent a fine-needle aspirate of the right lower lobe mass that confirmed the presence of adenocarcinoma. She was placed on Eliquis and she was discharged home. Subsequently she was referred to oncology and she was already seen by Dr. Casas. As part of her workup, a PET scan was done that showed suspicious metabolic uptake in the right lung mass consistent with neoplasm. No additional lung lesions or suspicious thoracic adenopathy was noted. Left adrenal mass or 2 adjacent masses were non-metabolically active and they were stable compared to previous imaging that was done 2015 consistent with benign etiology. There was metabolic soft tissue activity in the cecum and this was worrisome for primary cecal carcinoma. She is scheduled to have a colonoscopy done on 10/17/2019. The colonoscopy was completed and the patient was not found to have any GI malignancy. 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 Extension of the tumor into the superior sagittal sinus and sinus tumor thrombosis was considered. The possibility of extension into the venous sinus was not completely excluded. There were 2 additional subcentimeter areas of extra-axial moderate enhancement compatible with metastases. As such, the patient does note having stage IV adenocarcinoma of the lung. She is quite limited in terms of exercise capacity. She moves around with the help of a walker. She got quite limited approximately 3 years ago when she underwent her gallbladder surgery. 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 She can walk probably 10 feet on a flat surface without any assistance. Otherwise she moves around with the help of a walker. No recurrent pneumonias. No recurrent bronchitis. No previous hospitalization for any other pulmonary complications. She is an ex-smoker and she quit smoking back in the 80s. No history of any coronary artery disease. No congestion heart failure. No myocardial infarction. No history of cardiac arrhythmias. She has history of depression that is well treated with a combination of antidepressant medication. She has also hypertension. The pulmonary embolism is being treated. Note that she also has a remote history of DVT of the left lower extremity. That the CT guided biopsy of the right lower lobe mass revealed adenocarcinoma of the lung, P53 mutation was positive, PDL 1 was 0%. This patient came into the emergency department yesterday because of rapid deterioration and the respiratory status. She apparently was at radiation oncology yesterday receiving radiation therapy to her chest. She has received a total of 2 weeks of radiation therapy to the chest. The patient was having increased cough and shortness of breath and she came into the emergency department where she was found to be hypoxic and in significant respiratory distress. Chest x-ray was done and showed a right hilar mass in addition to a increased infiltration of the right lung. The white cell count was at 5.6. He was at 12.9. The proBNP level is 848. Troponins of 0.046. BUN is at 20 with a creatinine of 0.8. Glucose of 220. Influenza screen was negative. The patient has been placed in droplet isolation for suspected covid 19 infection. At the time of my evaluation, the patient was on a BiPAP. I made adjustments in up with the patient's BiPAP at a pressure of 17/8 cm of water. She is able to generate a tidal volume of more than 500. Discussed the case with the daughter. Decided to proceed with some antibiotic treatment and steroid treatment pending further progress. The patient and her daughter opted to go with a DNR/DNI CODE STATUS. Nevertheless they're 1 to be offered treatment for the next 24-48 hours and assess her clinical response. She is unable to speak up. His that this point in time. She is quite tachypneic. Hemodynamically stable and well. No angina. No palpitation. No fever for now. No significant swelling in lower extremities. Based on FEV1 is noted of 74% of predicted consistent with mild COPD. 11/28/2019 patient was seen and examined after bedside on the cardiac stepdown unit. She remains on droplet isolation for suspected Covid 19 infection, and her daughter remains at her bedside. This morning the patient had some increased complaints of shortness of breath and her chest x-ray this morning shows increasing airspace disease throughout the right lung and also of the peripheral left base. She remains to Clinic with her respiratory rate 36 and is currently on BiPAP support, iPAP 12/EPAP 5 rate of 10, FIO2 50% with oxygen saturations 95%. Dr. Styles discussed with the patient's daughter recommendations for possible hospice care as she is not improving despite antibiotic treatment and steroid treatments. The patient is quite lethargic this morning is unable to communicate. Covid 19 status remains pending. Laboratory results this morning show a WBC count 14.2, hemoglobin 13.6, potassium 5.5, CO2 21, BUN 37, and creatinine 1.34. She has been afebrile the last 24 hours. Objective - Vital Signs Vital signs: Vital Signs Temp 97.8 F 11/28/19 04:14 Pulse 103 H 11/28/19 04:14 Resp 32 H 11/28/19 04:14 BP 111/78 11/28/19 04:14 Pulse Ox 95 11/28/19 04:14 Intake & Output 11/27/19 11/28/19 11/28/19 18:59 06:59 18:59 Intake Total 410 540 Output Total 400 Balance 410 140 Weight 92.5 kg 92.5 kg Intake: Intake, IV Titration 100 Amount Piperacillin-Tazobactam 3 100 .375 gm In Sodium Chloride 0.9% 100 ml @ 25 mls/hr IVPB Q[facility]H [facility] Rx#: [id number] Oral 540 Blood Product 310 Output: Urine 400 Other: Voiding Method Indwelling Catheter - Constitutional Constitutional Comment(s): Lethargic, chronically ill 84-year-old patient. No fever. - EENT EENT Comment(s): no dry eyes, no vision change, no irritation. ENT: Absent: hard of hearing - Neck Details: Neck is supple, no lymphadenopathy. No venous jugular distention. Neck: Absent: stridor - Respiratory Details: Lung sounds with crackles in the right lung compared to the left. Scattered expiratory wheezes and rhonchi heard throughout the lung his bilaterally. Respirations are symmetrical and tachypnic. - Cardiovascular Details: Regular rhythm with tachycardic rate. S1 and S2 present, negative for S3, gallop or murmur. - Gastrointestinal Gastrointestinal Comment(s): Abdomen is soft, nontender and nondistended. Active bowel sounds present throughout. No organomegaly appreciated. - Integumentary Integumentary Comment(s): Skin is warm and dry. No clubbing or cyanosis is present. No rash or abnormal pigmentation is present. - Neurologic Neurologic Comment(s): Lethargic and slow to respond. Neurologic: Present: CNII-XII intact - Musculoskeletal Musculoskeletal: Present: generalized weakness - Psychiatric Psychiatric Comment(s): Lethargic. - Allied health notes Allied health notes reviewed: nursing - Labs CBC & Chem 7: 11/28/19 05:40 11/28/19 05:40 Labs: Abnormal Lab Results - Last 24 Hours (Table) 11/27/19 11/27/19 11/28/19 Range/Units 10:28 17:19 02:45 WBC (3.8-10.6) k/uL RBC (3.80-5.40) m/uL MCH (25.0-35.0) pg MCHC (31.0-37.0) g/dL RDW (11.5-15.5) % Neutrophils # (1.3-7.7) k/uL Lymphocytes # (1.0-4.8) k/uL ABG pH 7.34 L (7.35-7.45) ABG O2 Saturation 98.4 H (94-97) % Potassium (3.5-5.1) mmol/L Carbon Dioxide (22-30) mmol/L BUN (7-17) mg/dL Creatinine (0.52-1.04) mg/dL Glucose (74-99) mg/dL POC Glucose (mg/dL) 143 H (75-99) mg/dL AST (14-36) U/L Procalcitonin 0.69 H (0.02-0.09) ng/mL 11/28/19 11/28/19 Range/Units 05:40 05:40 WBC 14.2 H (3.8-10.6) k/uL RBC 5.44 H (3.80-5.40) m/uL MCH 24.9 L (25.0-35.0) pg MCHC 30.0 L (31.0-37.0) g/dL RDW 15.6 H (11.5-15.5) % Neutrophils # 12.8 H (1.3-7.7) k/uL Lymphocytes # 0.3 L (1.0-4.8) k/uL ABG pH (7.35-7.45) ABG O2 Saturation (94-97) % Potassium 5.5 H (3.5-5.1) mmol/L Carbon Dioxide 21 L (22-30) mmol/L BUN 37 H (7-17) mg/dL Creatinine 1.34 H (0.52-1.04) mg/dL Glucose 157 H (74-99) mg/dL POC Glucose (mg/dL) (75-99) mg/dL AST 55 H (14-36) U/L Procalcitonin (0.02-0.09) ng/mL Microbiology - Last 24 Hours (Table) 11/27/19 03:36 Blood Culture - Preliminary Blood No Growth after 24 hours - Imaging and Cardiology Chest x-ray: report reviewed, image reviewed Assessment and Plan Assessment: 1 metastatic stage IV adenocarcinoma of the right lung with [employer]ITION [employer]OR metastases. The patient was receiving radiation therapy to the chest on outpatient basis and the patient has completed 1 week course of treatment. 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 Less infiltration of the left lung is seen today chest x-ray. Rule out radiation pneumonitis. Rule out superimposed bacterial pneumonia. Rule out covid 19 infection. The patient is currently on BiPAP at a pressure of 17/8 cm of water. 3 acute shortness of breath secondary to above currently on BiPAP 4 COPD with FEV1 of 74% of predicted at baseline 5 history of DVT of the left lower extremity and pulmonary embolism post EKOS therapy and the patient is on long-term anticoagulation 6 diabetes mellitus 7 hypertension 8 hyperlipidemia 9 peripheral vascular disease 10 history of skin cancer 11 hiatal hernia 12 diverticular disease 13 osteoarthritis in significant his mobility and gait and the patient has undergone also cervical spine fusion along with multiple orthopedic int erventions. She has difficulty with his mobility and the patient uses a walker. 14 troponin leak Plan: 1. Keep the patient on droplet isolation for possibility of Covid 19 infection, results pending. 2. Continue the patient with broad-spectrum antibiotics including Zosyn and Levaquin 3. Continue IV Solu Medrol 60 mg every 6 hours. 4. Hospice has been consulted. 5. Keep the BiPAP pressure of 12/5 cm of water, FIO2 50%. 6. Once the Covid patient's status has been established she may benefit from initiation of bronchodilator treatments. 7. Continue GI and DVT prophylaxis. 8. Her condition remains critical. DNR/DNI CODE STATUS has been established. This was a joint evaluation done between the nurse practitioner and Dr. Anisa Styles. Time with Patient: Less than 30
--- NOTE | 2019-11-28 13:55 | P.PN ---
Subjective 84-year-old pleasant female came in with compensative shortness of breath with rest rapid respiratory deterioration and patient is presently on BiPAP. Patient chest x-ray showing interstitial infiltrates predominantly in the right side. Patient the was diagnosed with lung cancer metastatic disease to the brain. And has adenocarcinoma of the lung. Patient is sitting recently received a radiation therapy and the patient is supposed to get radiation therapy to the brain metastases. Patient is predominantly sagittal sinus involvement with the metastatic disease. Patient BNP is only 48 patient doesn't have any JVD no crackles diminished air entry into bilateral lung ag. Pulmonary evaluated the patient and CT of the chest was ordered to rule out pulmonary embolism. Patient and family wanted to continue the treatment for her lung cancer. Patient was started on empiric antibiotics for the pneumonia although there is some infiltrate in the right hilar region which are mostly appears like mass and interstitial prominence is probably radiation injury to the lung. Patient is minimally elevated troponins. Patient doesn't have any fever chills patient was comparing of cough which is a dry cough. Leukocytosis no fever 11/28/2019 Patient overall clinical condition is actually pretty was the same are bit worse today patient is undergoing palliative radiation and patient appears to have radiation induced lung injury her prognosis is extremely poor because of which the automatic toe laster and I made discussed with the family regarding hospice and comfort care hospice services were consulted until the family makes additional hospice will continue the treatment for now. review of systems: Unable to obtain due to her clinical condition All inpatient medications were reviewed and appropriate changes in these medications as dictated in the interval history and assessment and plan. Objective - Vital Signs Vital signs: Vital Signs Temp 97.8 F 11/28/19 04:14 Pulse 103 H 11/28/19 04:14 Resp 32 H 11/28/19 04:14 BP 111/78 11/28/19 04:14 Pulse Ox 95 11/28/19 04:14 Intake & Output 11/27/19 11/28/19 11/28/19 18:59 06:59 18:59 Intake Total 410 540 Output Total 400 Balance 410 140 Weight 92.5 kg 92.5 kg Intake: Intake, IV Titration 100 Amount Piperacillin-Tazobactam 3 100 .375 gm In Sodium Chloride 0.9% 100 ml @ 25 mls/hr IVPB Q8H [facility] Rx#: [id number] Oral 540 Blood Product 310 Output: Urine 400 Other: Voiding Method Indwelling Catheter - Exam PHYSICAL EXAMINATION: GENERAL: The patient is alert and oriented x3, not in any acute distress. Well developed, well nourished. Patient is on BiPAP at this time HEENT: Pupils are round and equally reacting to light. EOMI. No scleral icterus. No conjunctival pallor. Normocephalic, atraumatic. No pharyngeal erythema. No thyromegaly. CARDIOVASCULAR: S1 and S2 present. No murmurs, rubs, or gallops. PULMONARY: Decreased air entry and mild expiratory wheezing. ABDOMEN: Soft, nontender, nondistended, normoactive bowel sounds. No palpable organomegaly. MUSCULOSKELETAL: No joint swelling or deformity. EXTREMITIES: No cyanosis, clubbing, or pedal edema. NEUROLOGICAL: Gross neurological examination did not reveal any focal deficits. SKIN: No rashes. - Labs CBC & Chem 7: 11/28/19 05:40 11/28/19 05:40 Labs: Abnormal Lab Results - Last 24 Hours (Table) 11/27/19 11/27/19 11/28/19 Range/Units 10:28 17:19 02:45 WBC (3.8-10.6) k/uL RBC (3.80-5.40) m/uL MCH (25.0-35.0) pg MCHC (31.0-37.0) g/dL RDW (11.5-15.5) % Neutrophils # (1.3-7.7) k/uL Lymphocytes # (1.0-4.8) k/uL ABG pH 7.34 L (7.35-7.45) ABG O2 Saturation 98.4 H (94-97) % Potassium (3.5-5.1) mmol/L Carbon Dioxide (22-30) mmol/L BUN (7-17) mg/dL Creatinine (0.52-1.04) mg/dL Glucose (74-99) mg/dL POC Glucose (mg/dL) 143 H (75-99) mg/dL AST (14-36) U/L Procalcitonin 0.69 H (0.02-0.09) ng/mL 11/28/19 11/28/19 Range/Units 05:40 05:40 WBC 14.2 H (3.8-10.6) k/uL RBC 5.44 H (3.80-5.40) m/uL MCH 24.9 L (25.0-35.0) pg MCHC 30.0 L (31.0-37.0) g/dL RDW 15.6 H (11.5-15.5) % Neutrophils # 12.8 H (1.3-7.7) k/uL Lymphocytes # 0.3 L (1.0-4.8) k/uL ABG pH (7.35-7.45) ABG O2 Saturation (94-97) % Potassium 5.5 H (3.5-5.1) mmol/L Carbon Dioxide 21 L (22-30) mmol/L BUN 37 H (7-17) mg/dL Creatinine 1.34 H (0.52-1.04) mg/dL Glucose 157 H (74-99) mg/dL POC Glucose (mg/dL) (75-99) mg/dL AST 55 H (14-36) U/L Procalcitonin (0.02-0.09) ng/mL Microbiology - Last 24 Hours (Table) 11/27/19 03:36 Blood Culture - Preliminary Blood No Growth after 24 hours Assessment and Plan Plan: Acute hypoxic respiratory failure with pulmonary infiltrates most probably secondary to radiation pneumonitis along with some COPD exacerbation patient will be continued on systemic steroids and inhalational treatments CT of the chest is being obtained possibility of covid-19 is low but will be tested for this. Possibility of bacterial or alcohol or viral pneumonia is low. -Adenocarcinoma of the right lung status post radiation therapy metastatic disease to brain -COPD with mild acute exacerbation -History of DVT in the right lower extremity for which patient denied correlation is to continue next and heparin type 2 diabetes mellitus -Hyperlipidemia -Peripheral vascular disease -Deconditioning and poor functionality patient the uses a walker at home -Severe osteoarthritis of the spineOn discharge, the patient has been prescribed multiple orthopedic interventions -Mildly elevated troponin secondary to hypoxemia no evidence of acute myocardial infarction metastatic stage IV lung cancer extreme poor prognosis patient is undergoing palliative radiation therapy discussion regarding hospice as mentioned above
[2019-11-28 15:20] VITALS: TEMP 96.7
[2019-11-28 15:29] VITALS: BP 109/74; PULSE 100; RESP 20
--- NOTE | 2019-11-28 15:35 | P.DS ---
Providers Date of admission: 11/27/19 04:40 Attending physician: Kaedn Kelly MD Consults: 11/27/19 06:38 Consult Physician Routine Consulting Provider: Anisa Styles Consult Reason/Comments: pna, copd Do you want consulting provider notified?: Yes Primary care physician: Matthieu Garcia [facility] Course: patient is being discharged to inpatient hospice please refer to my progress note from today for further details Patient Condition at Discharge: Serious Plan - Discharge Summary New Discharge Prescriptions: No Action Pravastatin Sodium [Pravachol] 40 mg PO HS Cholecalciferol [Vitamin D3 (25 Mcg = 1000 Iu)] 1,000 unit PO DAILY Vitamin B Complex 1 cap PO DAILY Furosemide [Lasix] 40 mg PO BID@0900,1500 FLUoxetine HCL 40 mg PO DAILY Gabapentin [Neurontin] 300 mg PO TID Sennosides/Docusate Sodium [Senna Plus 8.6-50 mg Tablet] 1 tab PO BID Polyethylene Glycol 3350 [Miralax] 17 gm PO DAILY ARIPiprazole [Abilify] 10 mg PO HS Albuterol Nebulized [Ventolin Nebulized] 2.5 mg INHALATION RT-QID oxyCODONE-APAP 7.5-325MG [Percocet 7.5-325 mg] 1 tab PO TID PRN PRN Reason: Pain Potassium Chloride [K-Tab ER] 20 meq PO BID Apixaban [Eliquis] 5 mg PO BID Acetaminophen Tab [Tylenol] 650 mg PO Q4H PRN PRN Reason: Pain Ipratropium-Albuterol Nebulize [Duoneb 0.5 mg-3 mg/3 ml Soln] 3 ml INHALATION RT-QID PRN PRN Reason: Shortness Of Breath Discharge Medication List Pravastatin Sodium [Pravachol] 40 mg PO HS 11/24/15 [History] Cholecalciferol [Vitamin D3 (25 Mcg = 1000 Iu)] 1,000 unit PO DAILY 01/15/16 [History] Vitamin B Complex 1 cap PO DAILY 01/15/16 [History] FLUoxetine HCL 40 mg PO DAILY 08/03/18 [History] Furosemide [Lasix] 40 mg PO BID@0900,1500 08/03/18 [History] ARIPiprazole [Abilify] 10 mg PO HS 08/31/19 [History] Gabapentin [Neurontin] 300 mg PO TID 08/31/19 [History] Polyethylene Glycol 3350 [Miralax] 17 gm PO DAILY 08/31/19 [History] Sennosides/Docusate Sodium [Senna Plus 8.6-50 mg Tablet] 1 tab PO BID 08/31/19 [History] Albuterol Nebulized [Ventolin Nebulized] 2.5 mg INHALATION RT-QID 10/15/19 [History] Apixaban [Eliquis] 5 mg PO BID 10/15/19 [History] Potassium Chloride [K-Tab ER] 20 meq PO BID 10/15/19 [History] oxyCODONE-APAP 7.5-325MG [Percocet 7.5-325 mg] 1 tab PO TID PRN 10/15/19 [History] Acetaminophen Tab [Tylenol] 650 mg PO Q4H PRN 11/27/19 [History] Ipratropium-Albuterol Nebulize [Duoneb 0.5 mg-3 mg/3 ml Soln] 3 ml INHALATION RT-QID PRN 11/27/19 [History] Follow up Appointment(s)/Referral(s): [facility], [NON-STAFF] - Matthieu Garcia MD [Primary Care Provider] - 1-2 days Discharge Disposition: DC/TRNS IP HOSP W/PLND IP READ
--- NOTE | 2019-11-29 12:35 | CDI ---
Documentation Clarification Form Date: 11/28/19 From: Willow Wilkinson Phone: If you have a question about this query, please contact Lian Jacobo, Dispatcher [employer] at [phone] between 8am and 5pm. Admit Date: 11/27/19 Discharge Date:11/28/19 Patient Name: Lee Ann Shea Visit Number: [id number] ATTENTION: The Clinical Documentation Specialists (CDI) and [facility] Coding Staff appreciate your assistance in clarifying documentation. Please respond to the clarification below the line at the bottom and electronically sign. The CDI & [facility] Coding staff will review the response and follow-up if needed. Please note: Queries are made part of the Legal Health Record. If you have any questions, please contact the author of this message via ITS. Dear Dr. Yee The patient presented with the following: Cough and shortness of breath. Sepsis was documented in the ED note. History/Risk Factors: Radiation pneumonitis, COPD exacerbation, lung cancer Clinical Indicators: Elevated pulse, WBC elevated on 11/27 WBC: 5.6 on admit, 14.2 the next morning Lactic acid: 1.6 Blood cultures: No growth Vitals signs on admission: T. 97.8, P. 109, R. 18, BP 115/87 Treatment: Antibiotics: IV Zithromax, IV Rocephin IV Bolus: 1/2 liter NS In your professional opinion, please clarify if these findings signify one of the following conditions, whether the condition is POA, and cause, if known: Condition Sepsis ruled out SIRS, without underlying infectious process Sepsis Severe Sepsis Septic Shock Other, please specify Unable to determine Link/Clarify if there is associated (due to/with): Organ failure Shock no sepsis, sepsis ruled out MTDD
[2019-11-29] MEDS ORDERED: LEVOFLOXACIN 750MG-D5W PMX 750 MG in DEXTROSE/WATER 1 150ML.BAG IVPB SCH (13:00)
--- NOTE | 2019-12-04 12:19 | CDI ---
Documentation Clarification Form Date: 12/04/2019 11:55:42 AM From: Maryann Gilbert RN CCDS Admit Date: 11/27/2019 04:40:00 AM Patient Name: Lee Ann Shea Visit Number: [id number] Discharge Date: 11/28/2019 03:30:00 PM ATTENTION: The Clinical Documentation Specialists (CDI) and [facility] Coding Staff appreciate your assistance in clarifying documentation. Please respond to the clarification below the line at the bottom and electronically sign. The CDI & [facility] Coding staff will review the response and follow-up if needed. Please note: Queries are made part of the Legal Health Record. If you have any questions, please contact the author of this message via ITS. Dr. John Yee Possibility of COVID 19 is documented in the H&P 11/26 and In Progress note 11/27 Patient history/risk factors: 84-year-old female presented to the ED with worsening shortness of breath. Medical history Lung cancer with metastasis to the brain, Recent radiation therapy, COPD and DM2 Clinical Indicators: Worsening cough and shortness of breath after treatment by PCP. CXR: 11/26 Right hilar mass like density increased. Increased pulmonary interstitial infiltrate in the right lung. Labs: 11/27 Na 135, Bun 20, Alk phos 127, LDH 529, Trop 0.046, BNP 848, Prolactin 0.69, ABGs: 11/27 PH 7.34, PCo2 40, pO2 102 HCO3 22 Total CO2 23 ABG O2 Sat 98.4 Viral Panel: 11/27 2018 Novel Coronavirus RNA Not Detected. Vital Signs: on admission 11/26 03:20 115/87 109 97.8 18 90% ra 11/26 05:07 107/73 115 25 95% BIPAP Treatment: Consult: [ document consultants impression/recommendations] In order to capture the severity of condition, please clarify if the above treatment/clinical indicators signify: COVID-19 ruled out COVID-19 confirmed Other, please specify Unable to determine (Last Form Revision: October 2019) Refer to the note and it was already dictated in the note and this query is not necessary MTDD
--- NOTE | 2019-12-07 07:20 | CDI ---
Documentation Clarification Form Date: 12/04/2019 11:55:42 AM From: Maryann Gilbert RN CCDS Admit Date: 11/27/2019 04:40:00 AM Patient Name: Lee Ann Shea Visit Number: [id number] Discharge Date: 11/28/2019 03:30:00 PM ATTENTION: The Clinical Documentation Specialists (CDI) and [facility] Coding Staff appreciate your assistance in clarifying documentation. Please respond to the clarification below the line at the bottom and electronically sign. The CDI & [facility] Coding staff will review the response and follow-up if needed. Please note: Queries are made part of the Legal Health Record. If you have any questions, please contact the author of this message via ITS. Dr. John Yee Your dictated notes have been reviewed and a response to this query was not found in your documentation. The COVID-19 test obtained on 11/26 and was reported Negative on 11/27. Possibility of COVID 19 is low but will be tested for this. is documented in the H&P 11/26 and In Progress note 11/27 Patient history/risk factors: 84-year-old female presented to the ED with worsening shortness of breath. Medical history Lung cancer with metastasis to the brain, Recent radiation therapy, COPD and DM2 Clinical Indicators: Worsening cough and shortness of breath after treatment by PCP. CXR: 11/26 Right hilar mass like density increased. Increased pulmonary interstitial infiltrate in the right lung. Labs: 11/27 Na 135, Bun 20, Alk phos 127, LDH 529, Trop 0.046, BNP 848, Prolactin 0.69, ABGs: 11/27 PH 7.34, PCo2 40, pO2 102 HCO3 22 Total CO2 23 ABG O2 Sat 98.4 Vital Signs: on admission 11/26 03:20 115/87 109 97.8 18 90% ra 11/26 05:07 107/73 115 25 95% BIPAP Pulmonary Consult 11/26 Rule Out superimposed bacterial pneumonia. Rule out Covid 19 infection. Treatment: 11/26 Duoneb x1 then Q4H PRN, Azithromycin Ivpb x1, Zosyn Ivpb x1, Solumedrol IV Q6HR GRACE. 0.9 Ns 1L Bolus In order to capture the severity of condition, please clarify if the above treatment/clinical indicators signify: COVID-19 ruled out False negative, treating for COVID 19 based on these clinical indicators: Other, please specify (Last Form Revision: October 2019) COVID-19 ruled out MTDD
== END 2019-11-28 15:30 | disposition hospice, home (50) | DRG 205 ==
LOC: EC 03:18 → 3SCARD 04:40
PROVIDERS: ADMIT Internal Medicine; ATTEND Internal Medicine
PROC: 5A09457 Assistance with Respiratory Ventilation, 24-96 Consecutive Hours, Continuous Positive Airway Pressure (ICD-10-PCS; principal; 2019-11-27)
DX: J70.0 Acute pulmonary manifestations due to radiation (principal); J96.01 Acute respiratory failure with hypoxia; C34.31 Malignant neoplasm of lower lobe, right bronchus or lung; C79.31 Secondary malignant neoplasm of brain; J44.0 Chronic obstructive pulmonary disease with (acute) lower respiratory infection; J44.1 Chronic obstructive pulmonary disease with (acute) exacerbation; E11.51 Type 2 diabetes mellitus with diabetic peripheral angiopathy without gangrene; Z20.828 Contact with and (suspected) exposure to other viral communicable diseases; E27.9 Disorder of adrenal gland, unspecified; E78.5 Hyperlipidemia, unspecified; F32.9 Major depressive disorder, single episode, unspecified; F41.9 Anxiety disorder, unspecified; I10 Essential (primary) hypertension; K44.9 Diaphragmatic hernia without obstruction or gangrene; K57.90 Diverticulosis of intestine, part unspecified, without perforation or abscess without bleeding; M51.36 Other intervertebral disc degeneration, lumbar region; M47.819 Spondylosis without myelopathy or radiculopathy, site unspecified; M19.012 Primary osteoarthritis, left shoulder; M19.011 Primary osteoarthritis, right shoulder; E55.9 Vitamin D deficiency, unspecified; I83.93 Asymptomatic varicose veins of bilateral lower extremities; K21.9 Gastro-esophageal reflux disease without esophagitis; M54.30 Sciatica, unspecified side; E04.1 Nontoxic single thyroid nodule; R79.89 Other specified abnormal findings of blood chemistry; Z86.711 Personal history of pulmonary embolism; Z79.01 Long term (current) use of anticoagulants; Z79.899 Other long term (current) drug therapy; Z88.5 Allergy status to narcotic agent; Z91.048 Other nonmedicinal substance allergy status; Z98.1 Arthrodesis status; Z87.891 Personal history of nicotine dependence; Z86.718 Personal history of other venous thrombosis and embolism; Z85.828 Personal history of other malignant neoplasm of skin; Z86.010 Personal history of colon polyps; Z96.60 Presence of unspecified orthopedic joint implant; Z66 Do not resuscitate; Z80.1 Family history of malignant neoplasm of trachea, bronchus and lung; Z80.3 Family history of malignant neoplasm of breast; Z80.9 Family history of malignant neoplasm, unspecified; Y84.2 Radiological procedure and radiotherapy as the cause of abnormal reaction of the patient, or of later complication, without mention of misadventure at the time of the procedure
CPT/HCPCS: 36415; 36600; 71045; 71046; 80053; 81001; 82728; 82805; 83605; 83615; 83880; 84145; 84484; 85025; 85379; 85610; 85730; 87040; 87502; 93005; 94640; 94660; 96361; 96365; 96375; 99285

== ENCOUNTER 2019-11-28 14:54 | Inpatient (IN) | payer MEDICAID ==
[2019-11-28] MEDS ORDERED: ARTIFICIAL TEARS-HYPROMELLOSE DROPS 15 ML BTL BOTH EYES PRN (15:07)
[2019-11-28] MEDS ORDERED: MORPHINE SULFATE 4 MG/ML SYRINGE IV PRN (15:07)
[2019-11-28] MEDS ORDERED: ACETAMINOPHEN SUPPOSITORY 650 MG SUPP RECTAL PRN (15:07)
[2019-11-28] MEDS ORDERED: ONDANSETRON 4 MG/2 ML VIAL IVP PRN (15:14)
[2019-11-28] MEDS: LORazepam 2 MG/ML INJ IV PRN ×2 (16:11→19:39)
[2019-11-28] MEDS: MORPHINE SULFATE 4 MG/ML SYRINGE IV PRN ×2 (16:12→19:39)
[2019-11-29] MEDS: LORazepam 2 MG/ML INJ IV PRN ×5 (00:33→13:57)
[2019-11-29] MEDS: MORPHINE SULFATE 4 MG/ML SYRINGE IV PRN ×4 (00:34→11:49)
[2019-11-29] MEDS: ATROPINE OPHTH SOLN 1% 5ML BTL SUBLINGUAL PRN ×4 (04:58→21:53)
[2019-11-29] MEDS: SCOPOLAMINE 1.5MG/72HR PATCH TRANSDERM PRN (04:58)
--- NOTE | 2019-11-29 11:51 | P.HPIM ---
History of Present Illness H&P Date: 11/29/19 Chief Complaint: Lung cancer with metastatic disease to the brain This is an 84-year-old pleasant female who came in with shortness of breath and rapid respirations and was on a BiPAP. Patient's most recent chest x-ray showed interstitial infiltrates predominantly on the right side and patient was diagnosed with lung cancer metastatic disease to the brain and has adenocarcinoma of the lung. Patient recently underwent radiation therapy and patient was supposed to receive radiation therapy for the brain metastasis as there was metastatic disease involvement of the sagittal sinus area. Patient did have a recent CT of the chest to rule out pulmonary embolism and at that time family wanted to continue with the treatment of her lung cancer. Patient was initially started on empiric antibiotics for the pneumonia although there is some infiltrate of the right hilar region which mostly appears to be masslike in the interstitial prominence is probably due to radiation injury of the lung. Patient was also found to have minimally elevated troponins. Patient's overall clinical condition continued to worsen and continue to have extremely poor prognosis and discussion of hospice with comfort care was had with the family along with the welfare adviser and the family is agreeable to hospice services to make the patient comfortable. Patient is following with [facility] hospice. Review of Systems Unable to obtain due to clinical condition Past Medical History Past Medical History: Cancer, COPD, Diabetes Mellitus, Deep Vein Thrombosis (DVT), GERD/Reflux, Hyperlipidemia, Hypertension, Osteoarthritis (OA), Pulmonary Embolus (PE), Seizure Disorder, Vascular Disorder Additional Past Medical History / Comment(s): RECENT DIAGNOSIS OF R SIDED LUNG CANCER-COMPLETED FIRST WEEK OF RADIATION, SKIN CA WITH REMOVAL, PT HAS HAD BENIGN COLON POLYPS/BENIGN CECAL MASS STILL PRESENT, RECENT PE, DVT LT LEG X2, SEVERE VARICOSE VEINS BILATERALLY, NIDDM TYPE II- NO LONGER ON MEDICATION FOR DIABETES SINCE WT LOSS, ARTHRITIS IN BACK, NECK AND SHOULDERS, SCIATICA, GASTRITIS, PINCHED NERVE IN BACK, RUPTURED DISCS, DDD, DUODENITIS, HIATAL HERNIA, DIVERTICULAR DX, BENIGN POLYPECTOMY, VITAMIN D DEFICIENCY, LOWER LEG/PEDAL EDEMA. History of Any Multi-Drug Resistant Organisms: None Reported Past Surgical History: Section, Cholecystectomy, Joint Replacement, Orthopedic Surgery Additional Past Surgical History / Comment(s): R lung needle bx, colonoscopy/polypectomies, recent PE with surgical removal, bilateral total knees, egds/colonoscopies, hemorrhoidectomy, cervical fusion, CTR RT WRIST, skin cancer removed from nose, R shoulder arthroscopic sx, L leg DVT removal, L breast benign bx. Past Anesthesia/Blood Transfusion Reactions: No Reported Reaction Past Psychological History: Anxiety, Depression Additional Psychological History / Comment(s): Pt resides alone at [facility]. She has 2 caregivers. She uses a walker to ambulate. She has a hoverround that she uses prn if her back/sciatica is bad. She no longer drives, her family takes her to appts or her caregivers. She has a glucometer and a nebulizer. Smoking Status: Former smoker Past Alcohol Use History: Occasional Additional Past Alcohol Use History / Comment(s): Pt started smoking in 1951 and quit in 1988. She smoked up to 4 ppd. Past Drug Use History: None Reported - Past Family History Father Sister(s) Family Medical History: Cancer Additional Family Medical History / Comment(s): Father of cancer in his "back" at the age of 63 yrs. He also had heart problems. Mother Additional Family Medical History / Comment(s): Mother had to have esophageal dilitations. She in her 80's. Sister(s) Family Medical History: Cancer Additional Family Medical History / Comment(s): Pt's sister had breast and lung cancer. Medications and Allergies Home Medications Medication Instructions Recorded Confirmed Type Pravastatin Sodium [Pravachol] 40 mg PO HS 11/24/15 11/28/19 History Cholecalciferol [Vitamin D3 (25 1,000 unit PO DAILY 01/15/16 11/28/19 History Mcg = 1000 Iu)] Vitamin B Complex 1 cap PO DAILY 01/15/16 11/28/19 History FLUoxetine HCL 40 mg PO DAILY 08/03/18 11/28/19 History Furosemide [Lasix] 40 mg PO BID@0900,1500 08/03/18 11/28/19 History ARIPiprazole [Abilify] 10 mg PO HS 08/31/19 11/28/19 History Gabapentin [Neurontin] 300 mg PO TID 08/31/19 11/28/19 History Polyethylene Glycol 3350 [Miralax] 17 gm PO DAILY 08/31/19 11/28/19 History Sennosides/Docusate Sodium [Senna 1 tab PO BID 08/31/19 11/28/19 History Plus 8.6-50 mg Tablet] Albuterol Nebulized [Ventolin 2.5 mg INHALATION RT-QID 10/15/19 11/28/19 History Nebulized] Apixaban [Eliquis] 5 mg PO BID 10/15/19 11/28/19 History Potassium Chloride [K-Tab ER] 20 meq PO BID 10/15/19 11/28/19 History oxyCODONE-APAP 7.5-325MG [Percocet 1 tab PO TID PRN 10/15/19 11/28/19 History 7.5-325 mg] Acetaminophen Tab [Tylenol] 650 mg PO Q4H PRN 11/27/19 11/28/19 History Ipratropium-Albuterol Nebulize 3 ml INHALATION RT-QID PRN 11/27/19 11/28/19 History [Duoneb 0.5 mg-3 mg/3 ml Soln] Allergies Allergy/AdvReac Type Severity Reaction Status Date / Time codeine Allergy Unknown Verified 11/27/19 10:38 nickel Allergy Unknown Verified 11/27/19 10:38 morphine AdvReac ARM TURNED Verified 11/27/19 10:38 RED DUCK Allergy Unknown Uncoded 10/15/19 09:56 Physical Exam Vitals: Vital Signs Temp Pulse Resp BP Pulse Ox 11/28/19 20:23 96 36 H 11/28/19 16:00 97.0 F L 100 18 125/75 100 Intake and Output 11/28/19 11/29/19 11/29/19 22:59 06:59 14:59 Output Total 525 650 Balance -525 -650 Output: Urine 525 650 Other: Voiding Method Indwelling Catheter Weight 92.5 kg Gen: This is a 84-year-old female lying in bed and appears to be in no acute distress. Well-developed, well-nourished. Patient is on nasal cannula HEENT: Head is atraumatic, normocephalic. Pupils equal, round. Sclerae is anicteric. NECK: Supple. No JVD. No lymphadenopathy. No thyromegaly. LUNGS: Decreased air entry bilaterally with some mild expiratory wheezing and rhonchi noted. No intercostal retractions. HEART: Regular rate and rhythm. No murmur. ABDOMEN: Soft. Obese. Bowel sounds are present. No masses. No tenderness. EXTREMITIES: No pedal edema. No calf tenderness. NEUROLOGICAL: Patient is asleep, alert and oriented x0-1. Assessment and Plan Assessment: -Adenocarcinoma of the right lung status post radiation therapy with metastatic disease to the brain -Metastatic stage IV lung cancer. Patient was undergoing palliative radiation therapy and family has now signed on with [facility] and patient is receiving hospice with comfort care measures only. -Acute hypoxic respiratory failure with pulmonary infiltrates most likely secondary to radiation pneumonitis along with some COPD exacerbation. Patient was evaluated and tested for Covid 19 and was documented as negative today. Patient was initiated on hospice care with comfort measures only. [facility] following. -COPD with mild acute exacerbation -History of DVT in the right lower extremity -Diabetes mellitus type 2 -Hyperlipidemia -Peripheral vascular disease -Deconditioning and poor functionality -Severe osteoarthritis of the spine -Mildly elevated troponin secondary to hypoxemia with no evidence of acute myocardial infarction
[2019-11-29] MEDS: MORPHINE SULFATE (100 MG/2 ML) 100 MG in SODIUM CHLORIDE 0.9% 100 ML IV SCH (12:48)
[2019-11-30] MEDS: MORPHINE SULFATE (100 MG/2 ML) 100 MG in SODIUM CHLORIDE 0.9% 100 ML IV SCH ×2 (02:03→18:03)
[2019-11-30] MEDS: ATROPINE OPHTH SOLN 1% 5ML BTL SUBLINGUAL PRN ×2 (10:51→14:53)
[2019-11-30] MEDS: LORazepam 2 MG/ML INJ IV PRN ×3 (10:52→19:27)
--- NOTE | 2019-11-30 13:06 | P.PN ---
Subjective Progress Note Date: 11/30/19 Principal diagnosis: 11/30/2019 Patient is seen and evaluated in follow-up today and currently remains on hospice comfort measures only and a morphine drip has been initiated. Patient appears to be comfortable and daughter at the bedside. We'll continue to monitor closely. Increased secretions noted in patient is on atropine as needed. [facility] following. Objective - Vital Signs Vital signs: Vital Signs Temp 97.0 F L 11/28/19 16:00 Pulse 96 11/28/19 20:23 Resp 36 H 11/28/19 20:23 BP 125/75 11/28/19 16:00 Pulse Ox 100 11/28/19 16:00 Intake & Output 11/29/19 11/30/19 11/30/19 18:59 06:59 18:59 Intake Total 18.163 39.167 Output Total 650 850 Balance -631.837 -810.833 Intake: Intake, IV Titration 18.163 39.167 Amount Morphine Sulfate (100 mg/ 18.163 39.167 2 ml) 100 mg In Sodium Chloride 0.9% 100 ml @ Titrate IV .Q0M [facility] Rx#: [id number] Output: Urine 650 850 Other: Voiding Method Indwelling Catheter Indwelling Catheter - Exam Gen: This is a 84-year-old female lying in bed and appears to be in no acute distress. Well-developed, well-nourished. Patient is on nasal cannula HEENT: Head is atraumatic, normocephalic. Pupils equal, round. Sclerae is anicteric. Increased oral secretions noted. NECK: Supple. No JVD. No lymphadenopathy. No thyromegaly. LUNGS: Decreased air entry bilaterally with some mild expiratory wheezing and rhonchi noted. No intercostal retractions. HEART: Regular rate and rhythm. No murmur. ABDOMEN: Soft. Obese. Bowel sounds are present. No masses. No tenderness. EXTREMITIES: No pedal edema. No calf tenderness. NEUROLOGICAL: Patient is asleep, unarousable Assessment and Plan Assessment: -Adenocarcinoma of the right lung status post radiation therapy with metastatic disease to the brain -Metastatic stage IV lung cancer. Patient was undergoing palliative radiation therapy and family has now signed on with [facility] and patient is receiving hospice with comfort care measures only. -Acute hypoxic respiratory failure with pulmonary infiltrates most likely secon david to radiation pneumonitis along with some COPD exacerbation. Patient was evaluated and tested for Covid 19 and was documented as negative today. Patient was initiated on hospice care with comfort measures only. [facility] following. -COPD with mild acute exacerbation -History of DVT in the right lower extremity -Diabetes mellitus type 2 -Hyperlipidemia -Peripheral vascular disease -Deconditioning and poor functionality -Severe osteoarthritis of the spine -Mildly elevated troponin secondary to hypoxemia with no evidence of acute myocardial infarction Plan: Patient remains on hospice with [facility] and is comfort measures only. Morphine drip was initiated. Increased oral secretions noted and has atropine as needed. Will continue to monitor closely.
[2019-12-01] MEDS: LORazepam 2 MG/ML INJ IV PRN ×2 (03:33→09:56)
[2019-12-01] MEDS: ATROPINE OPHTH SOLN 1% 5ML BTL SUBLINGUAL PRN (03:35)
[2019-12-01] MEDS: MORPHINE SULFATE (100 MG/2 ML) 100 MG in SODIUM CHLORIDE 0.9% 100 ML IV SCH (12:56)
[2019-12-01] MEDS: GLYCOPYRROLATE 0.2 MG/ML 2 ML VIAL IVP SCH ×2 (13:20→17:10)
[2019-12-01] MEDS: LORazepam 2 MG/ML INJ IV SCH ×2 (15:49→21:18)
[2019-12-02] MEDS: LORazepam 2 MG/ML INJ IV SCH ×6 (00:29→21:10)
[2019-12-02] MEDS: GLYCOPYRROLATE 0.2 MG/ML 2 ML VIAL IVP SCH ×4 (00:30→20:41)
[2019-12-02] MEDS: SCOPOLAMINE 1.5MG/72HR PATCH TRANSDERM PRN (05:19)
[2019-12-02] MEDS: MORPHINE SULFATE (100 MG/2 ML) 100 MG in SODIUM CHLORIDE 0.9% 100 ML IV SCH (11:06)
--- NOTE | 2019-12-02 13:11 | P.PN ---
Subjective Progress Note Date: 12/01/19 Patient is seen and evaluated in follow-up; remains on hospice comfort measures only and a morphine drip has been initiated. Patient's family members are at bedside and reports that patient desaturated through the night but has been comfortable since then. We'll continue to monitor closely. Increased se cretions noted in patient is on atropine as needed. [facility] following. Objective - Vital Signs Vital signs: Vital Signs Temp 97.0 F L 11/28/19 16:00 Pulse 96 11/28/19 20:23 Resp 36 H 11/28/19 20:23 BP 125/75 11/28/19 16:00 Pulse Ox 100 11/28/19 16:00 Intake & Output 11/30/19 12/01/19 12/01/19 18:59 06:59 18:59 Intake Total 80 0 Output Total 450 550 Balance -370 -550 Intake: Intake, IV Titration 80 Amount Morphine Sulfate (100 mg/ 80 2 ml) 100 mg In Sodium Chloride 0.9% 100 ml @ Titrate IV .Q0M [facility] Rx#: [id number] Oral 0 Output: Urine 450 550 Other: Voiding Method Indwelling Catheter Indwelling Catheter Indwelling Catheter # Bowel Movements 0 - Exam Gen: This is a 84-year-old female lying in bed and appears to be in no acute distress. Well-developed, well-nourished. Patient is on nasal cannula HEENT: Head is atraumatic, normocephalic. Pupils equal, round. Sclerae is anicteric. Increased oral secretions noted. NECK: Supple. No JVD. No lymphadenopathy. No thyromegaly. LUNGS: Decreased air entry bilaterally with some mild expiratory wheezing and rhonchi noted. No intercostal retractions. HEART: Regular rate and rhythm. No murmur. ABDOMEN: Soft. Obese. Bowel sounds are present. No masses. No tenderness. EXTREMITIES: No pedal edema. No calf tenderness. NEUROLOGICAL: Patient is asleep, unarousable Assessment and Plan Assessment: -Adenocarcinoma of the right lung status post radiation therapy with metastatic disease to the brain -Metastatic stage IV lung cancer. Patient was undergoing palliative radiation therapy and family has now signed on with [facility] and patient is receiving hospice with comfort care measures only. -Acute hypoxic respiratory failure with pulmonary infiltrates most likely secondary to radiation pneumonitis along with some COPD exacerbation. Patient was evaluated and tested for Covid 19 and was documented as negative today. Patient was initiated on hospice care with comfort measures only. [facility] following. -COPD with mild acute exacerbation -History of DVT in the right lower extremity -Diabetes mellitus type 2 -Hyperlipidemia -Peripheral vascular disease -Deconditioning and poor functionality -Severe osteoarthritis of the spine -Mildly elevated troponin secondary to hypoxemia with no evidence of acute myocardial infarction
[2019-12-03] MEDS: GLYCOPYRROLATE 0.2 MG/ML 2 ML VIAL IVP SCH ×5 (00:05→23:53)
[2019-12-03] MEDS: LORazepam 2 MG/ML INJ IV SCH ×7 (00:05→23:53)
[2019-12-03] MEDS: MORPHINE SULFATE (100 MG/2 ML) 100 MG in SODIUM CHLORIDE 0.9% 100 ML IV SCH (06:08)
--- NOTE | 2019-12-03 15:28 | P.PN ---
Subjective Progress Note Date: 12/03/19 Principal diagnosis: 11/30/2019 Patient is seen and evaluated in follow-up today and currently remains on hospice comfort measures only and a morphine drip has been initiated. Patient appears to be comfortable and daughter at the bedside. We'll continue to monitor closely. Increased secretions noted in patient is on atropine as needed. [facility] following. 12/03/2019 Patient is seen in follow-up today and continues to remain on hospice with comfort measures only. Patient continues with a morphine drip along with Ativan and atropine as needed. Patient was noted to have a fever and family wishes to continue with comfort measures only. [facility] following. Will continue to follow closely. Objective - Vital Signs Vital signs: Vital Signs Temp 97.0 F L 11/28/19 16:00 Pulse 96 11/28/19 20:23 Resp 36 H 11/28/19 20:23 BP 125/75 11/28/19 16:00 Pulse Ox 100 11/28/19 16:00 Intake & Output 12/02/19 12/03/19 12/03/19 18:59 06:59 18:59 Intake Total 142 95.167 40 Output Total 500 1300 Balance -358 1204.833 40 Intake: IV 40 40 Morphine Sulfate (100 mg/ 40 40 2 ml) 100 mg In Sodium Chloride 0.9% 100 ml @ Titrate IV .Q0M [facility] Rx#: [id number] Intake, IV Titration 102 95.167 Amount Morphine Sulfate (100 mg/ 102 95.167 2 ml) 100 mg In Sodium Chloride 0.9% 100 ml @ Titrate IV .Q0M [facility] Rx#: [id number] Oral 0 0 Output: Urine 500 1300 Other: Voiding Method Indwelling Catheter Indwelling Catheter Indwelling Catheter - Exam Gen: This is a 84-year-old female lying in bed and appears to be in no acute distress. Warm to the touch Well-developed, well-nourished. Patient is on nasal cannula HEENT: Head is atraumatic, normocephalic. Pupils equal, round. Sclerae is anicteric. Increased oral secretions noted. NECK: Supple. No JVD. No lymphadenopathy. No thyromegaly. LUNGS: Decreased air entry bilaterally with some mild expiratory wheezing and rhonchi noted. No intercostal retractions. HEART: Regular rate and rhythm. No murmur. ABDOMEN: Soft. Obese. Bowel sounds are present. No masses. No tenderness. EXTREMITIES: No pedal edema. No calf tenderness. NEUROLOGICAL: Patient is asleep, unarousable Assessment and Plan Assessment: -Adenocarcinoma of the right lung status post radiation therapy with metastatic disease to the brain -Metastatic stage IV lung cancer. Patient was undergoing palliative radiation therapy and family has now signed on with [facility] and patient is receiving hospice with comfort care measures only. -Acute hypoxic respiratory failure with pulmonary infiltrates most likely secondary to radiation pneumonitis along with some COPD exacerbation. Patient was evaluated and tested for Covid 19 and was documented as negative today. Patient was initiated on hospice care with comfort measures only. [facility] following. -COPD with mild acute exacerbation -History of DVT in the right lower extremity -Diabetes mellitus type 2 -Hyperlipidemia -Peripheral vascular disease -Deconditioning and poor functionality -Severe osteoarthritis of the spine -Mildly elevated troponin secondary to hypoxemia with no evidence of acute myocardial infarction Plan: Patient remains on hospice with [facility] and is comfort measures only. To continue with comfort measures only. Will continue to monitor closely.
[2019-12-03] MEDS: LORazepam 2 MG/ML INJ IV PRN (21:15)
[2019-12-04] MEDS: MORPHINE SULFATE (100 MG/2 ML) 100 MG in SODIUM CHLORIDE 0.9% 100 ML IV SCH ×2 (01:05→18:16)
[2019-12-04] MEDS: LORazepam 2 MG/ML INJ IV SCH ×5 (04:06→19:49)
[2019-12-04] MEDS: GLYCOPYRROLATE 0.2 MG/ML 2 ML VIAL IVP SCH ×3 (05:31→19:48)
[2019-12-04] MEDS: ATROPINE OPHTH SOLN 1% 5ML BTL SUBLINGUAL PRN (08:58)
[2019-12-04 13:26] VITALS: BP 111/55; PULSE 84; TEMP 101.1
--- NOTE | 2019-12-04 14:24 | P.PN ---
Subjective Progress Note Date: 12/04/19 Principal diagnosis: 11/30/2019 Patient is seen and evaluated in follow-up today and currently remains on hospice comfort measures only and a morphine drip has been initiated. Patient appears to be comfortable and daughter at the bedside. We'll continue to monitor closely. Increased secretions noted in patient is on atropine as needed. [facility] following. 12/03/2019 Patient is seen in follow-up today and continues to remain on hospice with comfort measures only. Patient continues with a morphine drip along with Ativan and atropine as needed. Patient was noted to have a fever and family wishes to continue with comfort measures only. [facility] following. Will continue to follow closely. 12/04/2019 Patient is seen in follow-up today and continues on hospice with comfort measures only. No acute overnight changes. Patient remains on a morphine drip along with Ativan, atropine, and Robinul. [facility] is following. Family is at the bedside. Will continue to monitor closely. Objective - Vital Signs Vital signs: Vital Signs Temp 101.1 F H 12/04/19 13:25 Pulse 84 12/04/19 13:25 Resp 12 12/04/19 13:25 BP 111/55 12/04/19 13:25 Pulse Ox 88 L 12/04/19 13:25 Intake & Output 12/03/19 12/04/19 12/04/19 18:59 06:59 18:59 Intake Total 40 100.317 Output Total 450 Balance -410 100.317 Intake: IV 40 Morphine Sulfate (100 mg/ 40 2 ml) 100 mg In Sodium Chloride 0.9% 100 ml @ Titrate IV .Q0M [facility] Rx#: [id number] Intake, IV Titration 100.317 Amount Morphine Sulfate (100 mg/ 100.317 2 ml) 100 mg In Sodium Chloride 0.9% 100 ml @ Titrate IV .Q0M [facility] Rx#: [id number] Output: Urine 450 Other: Voiding Method Indwelling Catheter Indwelling Catheter Indwelling Catheter - Exam Gen: This is a 84-year-old female lying in bed and appears to be in no acute distress. Warm to the touch Well-developed, well-nourished. Patient is on nasal cannula HEENT: Head is atraumatic, normocephalic. Pupils equal, round. Sclerae is anicteric. Increased oral secretions noted. NECK: Supple. No JVD. No lymphadenopathy. No thyromegaly. LUNGS: Decreased air entry bilaterally with some mild expiratory wheezing and rhonchi noted. No intercostal retractions. HEART: Regular rate and rhythm. No murmur. ABDOMEN: Soft. Obese. Bowel sounds are present. No masses. No tenderness. EXTREMITIES: No pedal edema. No calf tenderness. NEUROLOGICAL: Patient is asleep, unarousable Assessment and Plan Assessment: -Adenocarcinoma of the right lung status post radiation therapy with metastatic disease to the brain -Metastatic stage IV lung cancer. Patient was undergoing palliative radiation therapy and family has now signed on with [facility] and patient is receiving hospice with comfort care measures only. -Acute hypoxic respiratory failure with pulmonary infiltrates most likely secondary to radiation pneumonitis along with some COPD exacerbation. Patient was evaluated and tested for Covid 19 and was documented as negative today. Patient was initiated on hospice care with comfort measures only. [facility] following. -COPD with mild acute exacerbation -History of DVT in the right lower extremity -Diabetes mellitus type 2 -Hyperlipidemia -Peripheral vascular disease -Deconditioning and poor functionality -Severe osteoarthritis of the spine -Mildly elevated troponin secondary to hypoxemia with no evidence of acute myocardial infarction Plan: Patient remains on hospice with [facility] and is comfort measures only. To continue with comfort measures only. Will continue to monitor closely.
[2019-12-05] MEDS: LORazepam 2 MG/ML INJ IV SCH ×4 (00:08→12:50)
[2019-12-05] MEDS: GLYCOPYRROLATE 0.2 MG/ML 2 ML VIAL IVP SCH ×3 (00:38→12:48)
[2019-12-05] MEDS: SCOPOLAMINE 1.5MG/72HR PATCH TRANSDERM PRN (04:53)
[2019-12-05 06:24] VITALS: RESP 9
[2019-12-05] MEDS: LORazepam 2 MG/ML INJ IV PRN (08:17)
[2019-12-05] MEDS: MORPHINE SULFATE (100 MG/2 ML) 100 MG in SODIUM CHLORIDE 0.9% 100 ML IV SCH (08:19)
[2019-12-05 10:11] VITALS: BMI 27.6
--- NOTE | 2019-12-05 14:59 | P.PN ---
Subjective Progress Note Date: 12/05/19 Principal diagnosis: 11/30/2019 Patient is seen and evaluated in follow-up today and currently remains on hospice comfort measures only and a morphine drip has been initiated. Patient appears to be comfortable and daughter at the bedside. We'll continue to monitor closely. Increased secretions noted in patient is on atropine as needed. [facility] following. 12/03/2019 Patient is seen in follow-up today and continues to remain on hospice with comfort measures only. Patient continues with a morphine drip along with Ativan and atropine as needed. Patient was noted to have a fever and family wishes to continue with comfort measures only. [facility] following. Will continue to follow closely. 12/04/2019 Patient is seen in follow-up today and continues on hospice with comfort measures only. No acute overnight changes. Patient remains on a morphine drip along with Ativan, atropine, and Robinul. [facility] is following. Family is at the bedside. Will continue to monitor closely. 12/05/2019 Patient is seen in follow-up today and spoke with granddaughter in detail about the progress of the patient. Family is concerned as she continues to be in a morphine drip and continues to moan and grimace at times. [facility] following. Morphine drip is being increased at this time. Spoke to the family in detail about supplemental oxygen via nasal cannula being comfort measure only and is not necessary at this time. Will continue to monitor closely. Patient does desat into the low 80s on room air. Patient is to continue with hospice comfort care measures only. Objective - Vital Signs Vital signs: Vital Signs Temp 101.1 F H 12/04/19 13:25 Pulse 84 12/04/19 21:32 Resp 9 L 12/05/19 06:18 BP 111/55 12/04/19 13:25 Pulse Ox 88 L 12/04/19 13:25 Intake & Output 12/04/19 12/05/19 12/05/19 18:59 06:59 18:59 Intake Total 102.0 87.696 57.833 Output Total 700 400 Balance -598.0 -312.304 57.833 Weight 92.5 kg Intake: Intake, IV Titration 102.0 87.696 57.833 Amount Morphine Sulfate (100 mg/ 102.0 87.696 57.833 2 ml) 100 mg In Sodium Chloride 0.9% 100 ml @ Titrate IV .Q0M [facility] Rx#: [id number] Oral 0 Output: Urine 700 400 Other: Voiding Method Indwelling Catheter Indwelling Catheter # Bowel Movements 0 - Exam Gen: This is a 84-year-old female lying in bed and appears to be in no acute distress at the time of my exam. Well-developed, well-nourished. Patient is on nasal cannula HEENT: Head is atraumatic, normocephalic. Pupils equal, round. Sclerae is anicteric. Increased oral secretions noted. NECK: Supple. No JVD. No lymphadenopathy. No thyromegaly. LUNGS: Decreased air entry bilaterally with rhonchi noted. No intercostal retractions. Decreased respirations noted of about 8/min HEART: Regular rate and rhythm. No murmur. ABDOMEN: Soft. Obese. EXTREMITIES: No pedal edema. No calf tenderness. 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 Patient was undergoing palliative radiation therapy and family has now signed on with [facility] and patient is receiving hospice with comfort care measures only. -Acute hypoxic respiratory failure with pulmonary infiltrates most likely secondary to radiation pneumonitis along with some COPD exacerbation. Patient was evaluated and tested for Covid 19 and was documented as negative today. Patient was initiated on hospice care with comfort measures only. [facility] hospice following. -COPD with mild acute exacerbation -Covid 19 ruled out. Testing was negative as noted on 11/29/2019 -History of DVT in the right lower extremity -Diabetes mellitus type 2 -Hyperlipidemia -Peripheral vascular disease -Deconditioning and poor functionality -Severe osteoarthritis of the spine -Mildly elevated troponin secondary to hypoxemia with no evidence of acute myocardial infarction Plan: Patient remains on hospice with [facility] and is comfort measures only. To continue with comfort measures only. Will continue to monitor closely.
--- NOTE | 2019-12-06 08:43 | P.DS ---
Providers Date of admission: 11/28/19 15:34 Expected date of discharge: 12/06/19 Attending physician: John Yee Primary care physician: Stated None Hospital Course: Preliminary cause of Adenocarcinoma of the right lung with metastatic disease to the brain Discharge disposition Patient on 12/05/2019. Please refer to nursing notes for time of . Patient going to [facility]. Please refer to previous dictation for HPI and hospital course. Patient Condition at Discharge: Poor Plan - Discharge Summary Discharge Rx Participant: No New Discharge Prescriptions: No Action Pravastatin Sodium [Pravachol] 40 mg PO HS Cholecalciferol [Vitamin D3 (25 Mcg = 1000 Iu)] 1,000 unit PO DAILY Vitamin B Complex 1 cap PO DAILY Furosemide [Lasix] 40 mg PO BID@0900,1500 FLUoxetine HCL 40 mg PO DAILY Gabapentin [Neurontin] 300 mg PO TID Sennosides/Docusate Sodium [Senna Plus 8.6-50 mg Tablet] 1 tab PO BID Polyethylene Glycol 3350 [Miralax] 17 gm PO DAILY ARIPiprazole [Abilify] 10 mg PO HS Albuterol Nebulized [Ventolin Nebulized] 2.5 mg INHALATION RT-QID oxyCODONE-APAP 7.5-325MG [Percocet 7.5-325 mg] 1 tab PO TID PRN PRN Reason: Pain Potassium Chloride [K-Tab ER] 20 meq PO BID Apixaban [Eliquis] 5 mg PO BID Acetaminophen Tab [Tylenol] 650 mg PO Q4H PRN PRN Reason: Pain Ipratropium-Albuterol Nebulize [Duoneb 0.5 mg-3 mg/3 ml Soln] 3 ml INHALATION RT-QID PRN PRN Reason: Shortness Of Breath Discharge Medication List Pravastatin Sodium [Pravachol] 40 mg PO HS 11/24/15 [History] Cholecalciferol [Vitamin D3 (25 Mcg = 1000 Iu)] 1,000 unit PO DAILY 01/15/16 [History] Vitamin B Complex 1 cap PO DAILY 01/15/16 [History] FLUoxetine HCL 40 mg PO DAILY 08/03/18 [History] Furosemide [Lasix] 40 mg PO BID@0900,1500 08/03/18 [History] ARIPiprazole [Abilify] 10 mg PO HS 08/31/19 [History] Gabapentin [Neurontin] 300 mg PO TID 08/31/19 [History] Polyethylene Glycol 3350 [Miralax] 17 gm PO DAILY 08/31/19 [History] Sennosides/Docusate Sodium [Senna Plus 8.6-50 mg Tablet] 1 tab PO BID 08/31/19 [History] Albuterol Nebulized [Ventolin Nebulized] 2.5 mg INHALATION RT-QID 10/15/19 [History] Apixaban [Eliquis] 5 mg PO BID 10/15/19 [History] Potassium Chloride [K-Tab ER] 20 meq PO BID 10/15/19 [History] oxyCODONE-APAP 7.5-325MG [Percocet 7.5-325 mg] 1 tab PO TID PRN 10/15/19 [History] Acetaminophen Tab [Tylenol] 650 mg PO Q4H PRN 11/27/19 [History] Ipratropium-Albuterol Nebulize [Duoneb 0.5 mg-3 mg/3 ml Soln] 3 ml INHALATION RT-QID PRN 11/27/19 [History] Discharge Disposition: - Preliminary Cause of Preliminary Cause of : Adenocarcinoma of the right lung with metastatic disease to the brain
== END 2019-12-05 17:29 | disposition expired | DRG 951 ==
LOC: 3SCARD 15:34 → 6NMEDSUR 11-29 13:41
PROVIDERS: ADMIT Internal Medicine; ATTEND Internal Medicine
DX: Z51.5 Encounter for palliative care (principal); J96.01 Acute respiratory failure with hypoxia; C34.91 Malignant neoplasm of unspecified part of right bronchus or lung; C79.31 Secondary malignant neoplasm of brain; J44.1 Chronic obstructive pulmonary disease with (acute) exacerbation; J70.0 Acute pulmonary manifestations due to radiation; E11.51 Type 2 diabetes mellitus with diabetic peripheral angiopathy without gangrene; E78.5 Hyperlipidemia, unspecified; F32.9 Major depressive disorder, single episode, unspecified; F41.9 Anxiety disorder, unspecified; G40.909 Epilepsy, unspecified, not intractable, without status epilepticus; I10 Essential (primary) hypertension; M47.9 Spondylosis, unspecified; I83.93 Asymptomatic varicose veins of bilateral lower extremities; K21.9 Gastro-esophageal reflux disease without esophagitis; M54.30 Sciatica, unspecified side; K44.9 Diaphragmatic hernia without obstruction or gangrene; K57.30 Diverticulosis of large intestine without perforation or abscess without bleeding; E55.9 Vitamin D deficiency, unspecified; R79.89 Other specified abnormal findings of blood chemistry; E66.9 Obesity, unspecified; Z68.27 Body mass index [BMI] 27.0-27.9, adult; Z20.828 Contact with and (suspected) exposure to other viral communicable diseases; Z88.5 Allergy status to narcotic agent; Z91.048 Other nonmedicinal substance allergy status; Z79.01 Long term (current) use of anticoagulants; Z79.899 Other long term (current) drug therapy; Z85.828 Personal history of other malignant neoplasm of skin; Z86.711 Personal history of pulmonary embolism; Z86.718 Personal history of other venous thrombosis and embolism; Z87.891 Personal history of nicotine dependence; Z92.3 Personal history of irradiation; Z86.010 Personal history of colon polyps; Z90.49 Acquired absence of other specified parts of digestive tract; Z96.653 Presence of artificial knee joint, bilateral; Z98.1 Arthrodesis status; Z80.1 Family history of malignant neoplasm of trachea, bronchus and lung; Z80.3 Family history of malignant neoplasm of breast; Z80.8 Family history of malignant neoplasm of other organs or systems; Y84.2 Radiological procedure and radiotherapy as the cause of abnormal reaction of the patient, or of later complication, without mention of misadventure at the time of the procedure